=== PATIENT | female | born 1930 | race Caucasian/White ===

== ENCOUNTER 2017-06-24 13:53 | Inpatient (IN) | payer MEDICARE, OTHER ==
[~2017-06-24] VITALS: Ht 160 cm; Wt 39.0 kg
[~2017-06-24 13:53] MED LIST: THYROID
[2017-06-24 14:00] VITALS: BP 122/60
[2017-06-24] MEDS ORDERED: TRAM50TA2 PO (15:39)
[2017-06-24] MEDS ORDERED: LEVO500T2 PO (15:44)
[2017-06-24] MEDS ORDERED: RIVA10TA PO (15:44)
[2017-06-24] MEDS ORDERED: THYR90TA PO (15:44)
[2017-06-24] MEDS ORDERED: BISACODYL 5 MG TABLET.DR PO ONE (19:45)
[2017-06-24 20:15] VITALS: BP 119/75
[2017-06-24] MEDS ORDERED: ALPRAZOLAM 0.5 MG TABLET PO PRN (20:15)
[2017-06-24] MEDS ORDERED: ALPRAZOLAM 0.5 MG TABLET ONE (21:11)
--- NOTE | 2017-06-25 05:54 | NUR ---
admitted for a right hip fracture which she had surgery on the right hip on jun. right hip incision ZINC MINER BLASTING no drainage noted, dressing applied for. incontinent of urine and BM x2. Kept clean and dry. needs attended. denies any pain nor anydiscomfort. Ua C&S ordered by Dr Humphrey but unable to get specimen, patient is incontinent. Got an ok to staright cath patient, but unable to get specimen either. Will endorse to the day shift.
[2017-06-25] MEDS: THYROID 60 MG TABLET PO SCH (06:26)
[2017-06-25 06:49] LABS: BASOPHILS # (AUTO) 0.1 K/uL (0.0-8.0); BASOPHILS % (AUTO) 0.5 % (0.0-2.0); EOSINOPHILS # (AUTO) 0.2 K/uL (0.0-0.7); EOSINOPHILS % (AUTO) 1.7 % (0.0-7.0); HEMATOCRIT 38.8 % (37-47); HEMOGLOBIN 12.5 G/DL (12.0-16.0); LYMPHOCYTES # (AUTO) 1.3 K/UL (0.8-4.8); LYMPHOCYTES % (AUTO) 10.2 % (20.5-51.5); MEAN CORPUSCULAR HEMOGLOBIN 26.1 UUG (27.0-31.0); MEAN CORPUSCULAR HGB CONC 32 g/dL (32.0-37.0); MEAN CORPUSCULAR VOLUME 80.9 FL (81.0-99.0); MONOCYTES # (AUTO) 0.5 K/UL (0.1-1.30); MONOCYTES % (AUTO) 4.1 % (0.0-11.0); NEUTROPHILS # (AUTO) 10.9 K/UL (1.8-8.9); NEUTROPHILS % (AUTO) 83.5 % (38.5-71.5); PLATELET COUNT (AUTO) 423 K/UL (150-450)
[2017-06-25 07:04] LABS: IRON, SERUM 36 ug/dL (50-175)
[2017-06-25 07:13] VITALS: BP 89/51
[2017-06-25 07:36] LABS: ALANINE AMINOTRANSFERASE 32 U/L (14-59); ALKALINE PHOSPHATASE 94 U/L (50-136); ASPARTATE AMINOTRANSFERASE 25 U/L (15-37); BILIRUBIN,TOTAL 0.3 mg/dL (0.2-1.0); CARBON DIOXIDE 24 mmol/L (21-32); CHLORIDE 108 mmol/L (98-107); CREATININE 0.6 mg/dL (0.6-1.3); GLUCOSE 131 mg/dL (74-106); PHOSPHOROUS 3.4 mg/dL (2.5-4.9); POTASSIUM 4.3 mmol/L (3.5-5.1); TOTAL PROTEIN, SERUM 6.3 g/dL (6.4-8.2); UREA NITROGEN, BLOOD 15 mg/dL (7-18)
[2017-06-25 08:56] LABS: THYROID STIMULATING HORMONE 8.892 mIU/mL (0.358-3.740)
[2017-06-25] MEDS ORDERED: SENNOSIDES/DOCUSATE SODIUM TABLET PO SCH (09:00)
[2017-06-25] MEDS ORDERED: LEVOFLOXACIN 250 MG TABLET PO SCH (09:00)
[2017-06-25] MEDS ORDERED: LEVOFLOXACIN 500 MG TABLET PO SCH (09:00)
[2017-06-25] MEDS ORDERED: RIVAROXABAN 10 MG TABLET PO SCH (09:00)
--- NOTE | 2017-06-25 10:00 | NUR ---
rapid response called because pt started to have unstable vital signs. pt had heart rate of 184 bp of 89/51. pt 02 sat started to decline. rapid response team arrived. pt put on 2L oxygen. md notified. md put new orders in. chest xray done and ekg done. pt trasnferred to ER. family notified. states that pt has had recurrent episodes of tachycardia and panic attacks. report given to ER nurse.
[2017-06-27] MEDS ORDERED: DOCU100C36 PO (17:20)
[2017-06-27] MEDS ORDERED: DILT240C64 PO (17:20)
[2017-06-27] MEDS ORDERED: LACT1CAP57 PO (17:20)
[2017-06-27] MEDS ORDERED: MERO1VIA IV (17:20)
[2017-06-27] MEDS ORDERED: RIVA15TA PO (17:20)
[2017-06-27] MEDS ORDERED: PANT40TA2 PO (17:20)
[2017-06-27] MEDS ORDERED: ACET325T53 PO (17:20)
[2017-06-27] MEDS ORDERED: AZIT250T6 PO (17:20)
[2017-06-27] MEDS ORDERED: MAGN400O6 PO (17:20)
--- NOTE | 2017-06-27 18:48 | NUR ---
report received from Kourtney BELL from [facility], patient arrived at 1830 via hospital bed and transporters, patient on room air, left wrist IV 22 g hep lock, redness noted on labia region, right sided surgical sight is clean and dry, no complaints of pain, or signs of distress, patient confusion noted, MD Humphrey made aware, 126/58, 18, 98% on room air, 90 pulse, 98.5 oral temp, MD Young notified of arrival, abduction pillow in place.
--- NOTE | 2017-06-27 19:30 | NUR ---
Received patient laying in bed. Caregiver, Waqas at bedside. Patient alert and verbally responsive. Able to make needs known. Denies any pain and discomfort at this time. No acute distress. No SOB. Kept clean and dry. Abductor pillow in place at this time. All needs attended to promptly. Call light within reach. Will continue to monitor.
[2017-06-27 20:53] VITALS: BP 119/55
[2017-06-27] MEDS ORDERED: MAGNESIUM HYDROXIDE 30 ML LIQUID UDC PO PRN (21:30)
[2017-06-27] MEDS: AZITHROMYCIN 250 MG TABLET PO SCH (21:40)
[2017-06-27] MEDS ORDERED: AZITHROMYCIN 250 MG TABLET ONE (21:54)
--- NOTE | 2017-06-28 06:00 | NUR ---
Patient slept comfortably throughout the night. No c/o pain and discomfort. No acute distress. No SOB. IV site on left arm removed due bleeding and non-patency of the IV. Pressure applied to site. Tolerated well. Diaper changed. Perineal care provided. Surgical site kept clean and dry. All needs attended to promptly. Call light within reach. Will continue to monitor.
[2017-06-28] MEDS: PANTOPRAZOLE SODIUM 40 MG TABLET.DR PO SCH (06:48)
[2017-06-28] MEDS ORDERED: PANTOPRAZOLE SODIUM 40 MG TABLET.DR PO ONE (07:01)
--- NOTE | 2017-06-28 07:35 | NUR ---
PATIENT NOTED SITTING ON SIDE OF THE BED WITH OT, NO SIGNS OF DISTRESS, NO COMPLAINTS OF PAIN NOTED, STATES SHE WILL ALLOW ME TO PLACE AN IV, CALL LIGHT IN REACH, BED LOCKED AND IN LOWEST POSITION
[2017-06-28 08:00] VITALS: BP 112/68
[2017-06-28] MEDS ORDERED: MEROPENEM 1 G VIAL IV SCH (09:00)
[2017-06-28] MEDS: DILTIAZEM HCL CD 240 MG CAP.SR.24H PO SCH (09:40)
[2017-06-28] MEDS: LACTOBACILLUS RHAMNOSUS GG 1 EACH CAPSULE PO SCH ×2 (09:40→20:58)
[2017-06-28] MEDS: MEROPENEM 1 G in IV NORMAL SALINE 100 ML IV SCH ×2 (09:41→21:05)
[2017-06-28] MEDS: TRAMADOL HCL 50 MG TABLET PO PRN (10:28)
[2017-06-28] MEDS: RIVAROXABAN 15 MG TABLET PO SCH (17:16)
--- NOTE | 2017-06-28 19:30 | NUR ---
Received patient sitting up in bed. at bedside. Alert and verbally responsive. Able to make needs known. IV site in left forearm. Patent and intact. No s/s of bleeding and infiltration. No c/o pain and discomfort. No acute distress. No SOB. Kept clean and dry. All needs attended to promptly. Call light within reach. Will continue to monitor.
[2017-06-28] MEDS: ACETAMINOPHEN 325 MG TABLET PO PRN (20:56)
[2017-06-28] MEDS: AZITHROMYCIN 250 MG TABLET PO SCH (20:58)
[2017-06-28] MEDS: DOCUSATE SODIUM 100 MG CAPSULE PO SCH (20:58)
[2017-06-28 21:05] VITALS: BP 125/54
[2017-06-29] MEDS: THYROID 60 MG TABLET PO SCH (06:27)
--- NOTE | 2017-06-29 06:34 | NUR ---
Patient slept comfortably throughout the night. No c/o pain and discomfort. No acute distress. No SOB. Kept clean and dry. IV site patent and intact. No s/s of bleeding. No infiltration noted. Surgical site kept clean and dry. All needs attended to promptly. Call light within reach. Will continue to monitor.
[2017-06-29 07:00] VITALS: BP 116/58
--- NOTE | 2017-06-29 07:33 | NUR ---
PATIENT AWAKE IN BED, NO COMPLAINTS OF PAIN, NO SIGNS OF DISTRESS NOTED, SBAR RECEIVED, CALL LIGHT IN REACH, BED LOCKED AND IN LOWEST POSITION
[2017-06-29] MEDS: LACTOBACILLUS RHAMNOSUS GG 1 EACH CAPSULE PO SCH ×2 (08:45→21:51)
[2017-06-29] MEDS: DILTIAZEM HCL CD 240 MG CAP.SR.24H PO SCH (08:49)
[2017-06-29] MEDS: TRAMADOL HCL 50 MG TABLET PO PRN ×2 (08:49→21:15)
[2017-06-29] MEDS: MEROPENEM 1 G in IV NORMAL SALINE 100 ML IV SCH ×2 (08:50→21:16)
[2017-06-29] MEDS: RIVAROXABAN 15 MG TABLET PO SCH (17:08)
[2017-06-29] MEDS ORDERED: LIDOCAINE 2% (UROJET) 10 ML JELLY MM ONE (19:30)
[2017-06-29] MEDS ORDERED: TRIAMCINOLONE ACETONIDE 40 MG/1 ML VIAL IJ ONE (19:30)
[2017-06-29] MEDS ORDERED: LIDOCAINE HCL 1% 20 ML VIAL IJ PRN (19:30)
--- NOTE | 2017-06-29 19:30 | NUR ---
Received patient in bed. Caregiver Waqas at bedside. Patient is alert and verbally responsive. Able to make needs known. Denies any pain and discomfort at this time. No acute distress. No SOB. Kept clean and dry. IV site on left forearm patient and intact. No s/s of bleeding. No s/s of infiltration. Dr. Young in facility to do B/L knee injections, but per MD patient refused and verbalized she wanted to do it when the daughter is here so she can hold her hand. All needs attended to promptly. Call light within reach. Will continue to monitor. Addendum: 06/29/17 at 2142 by MACK DORSEY RN Abductor pillow also in place at this time.
[2017-06-29] MEDS: DOCUSATE SODIUM 100 MG CAPSULE PO SCH (21:00)
[2017-06-29] MEDS: AZITHROMYCIN 250 MG TABLET PO SCH (21:15)
[2017-06-29 22:03] VITALS: BP 113/57
[2017-06-30] MEDS: THYROID 60 MG TABLET PO SCH (06:40)
[2017-06-30] MEDS: PANTOPRAZOLE SODIUM 40 MG TABLET.DR PO SCH (06:43)
--- NOTE | 2017-06-30 07:50 | NUR ---
Pt SBAR report received near bedside. Pt. sitting up in bed, awake, alert, oriented x3 with no c/o pain or discomfort at this time. All safety and comfort measures in place, call light and personal items within reach. Bed in locked and low position. Will continue to monitor.
[2017-06-30 08:44] VITALS: BP 115/53
[2017-06-30] MEDS: LACTOBACILLUS RHAMNOSUS GG 1 EACH CAPSULE PO SCH ×2 (09:19→21:26)
[2017-06-30] MEDS: DILTIAZEM HCL CD 240 MG CAP.SR.24H PO SCH (09:24)
[2017-06-30] MEDS: MEROPENEM 1 G in IV NORMAL SALINE 100 ML IV SCH ×2 (09:30→21:26)
[2017-06-30] MEDS: TRAMADOL HCL 50 MG TABLET PO PRN (12:54)
--- NOTE | 2017-06-30 13:02 | NUR ---
Pt reports Right knee pain, level 7/10 while sitting in bed. Pt.'s /caregiver Waqas is at the bedside. Tramadol one 50mg tab administered per PRN pain orders. Will reassess and continue to monitor pain management throughout shift.
[2017-06-30] MEDS: RIVAROXABAN 15 MG TABLET PO SCH (17:40)
--- NOTE | 2017-06-30 18:33 | NUR ---
Pt comfortably sitting up in semi-fowlers position with family visiting at bedside. Bed in lowest level, locked, and 2 side rails up. Pt compliant with all routine medication administration during this shift. Pt reports having no pain since medication this afternoon. All comfort and safety measures in place at this time. Will continue to monitor and endorse field representative.
--- NOTE | 2017-06-30 19:30 | NUR ---
PT ALERT AND ORIENTED IN BED, BUT FORGETFUL AT TIMES. NO DISTRESS NOTED. IV INTACT AND PATENT. ABDUCTOR PILLOW IN PLACE. NO PAIN NOTED AT THIS TIME. CLEAN AND DRY. TURNED AND REPOSITIONED. SAFETY MAINTAINED. CALL LIGHT WITHIN REACH. WILL CONTINUE TO MONITOR. FAMILY AT BEDSIDE.
[2017-06-30 20:37] VITALS: BP 108/66
[2017-06-30] MEDS: DOCUSATE SODIUM 100 MG CAPSULE PO SCH (21:26)
[2017-06-30] MEDS: Z GUARD REMEDY PASTE 57 GM TUBE TOP PRN (21:40)
[2017-06-30] MEDS: ALPRAZOLAM 0.5 MG TABLET PO PRN (21:40)
[2017-07-01] MEDS: THYROID 60 MG TABLET PO SCH (06:14)
[2017-07-01] MEDS: PANTOPRAZOLE SODIUM 40 MG TABLET.DR PO SCH (06:14)
--- NOTE | 2017-07-01 06:49 | NUR ---
PT RESTING IN BED. NO DISTRESS NOTED. IV INTACT AND PATENT. SLEPT WELL THROUGHOUT THE NIGHT. CLEAN AND DRY. TURNED AND REPOSITIONED. DRESSING CHANGED DUE TO SOILING. Z GUARD APPLIED. SAFETY MAINTAINED. CALL LIGHT WITHIN REACH.
[2017-07-01] MEDS: LACTOBACILLUS RHAMNOSUS GG 1 EACH CAPSULE PO SCH ×2 (09:48→20:31)
[2017-07-01] MEDS: ACETAMINOPHEN 325 MG TABLET PO PRN (09:48)
[2017-07-01] MEDS: DILTIAZEM HCL CD 240 MG CAP.SR.24H PO SCH (09:50)
[2017-07-01] MEDS: MEROPENEM 1 G in IV NORMAL SALINE 100 ML IV SCH ×2 (09:51→20:31)
[2017-07-01] MEDS: RIVAROXABAN 15 MG TABLET PO SCH (17:41)
[2017-07-01] MEDS: TRAMADOL HCL 50 MG TABLET PO PRN (18:43)
--- NOTE | 2017-07-01 19:25 | NUR ---
Received pt in bed, awake, alert and watching TV. Caregiver at bedside. No acute distress noted. Denies pain or discomfort at this time. Abductor pillow in place. All safety measures and fall precautions maintained. Call light within reach. Will continue to monitor.
[2017-07-01] MEDS: DOCUSATE SODIUM 100 MG CAPSULE PO SCH (20:31)
[2017-07-01 22:00] VITALS: BP 133/55
--- NOTE | 2017-07-02 05:57 | NUR ---
Pt slept comfortably throughout shift. Denies pain or discomfort. No acute distress noted. Kept clean and dry. Tolerated all medications well. Abductor pillow in place. All safety measures and fall precautions maintained. Call light within reach. Will continue to monitor.
[2017-07-02] MEDS: THYROID 60 MG TABLET PO SCH (06:24)
[2017-07-02] MEDS: PANTOPRAZOLE SODIUM 40 MG TABLET.DR PO SCH (06:24)
[2017-07-02 07:09] VITALS: BP 116/60
[2017-07-02 07:27] LABS: BASOPHILS # (AUTO) 0.1 K/uL (0.0-8.0); BASOPHILS % (AUTO) 0.8 % (0.0-2.0); EOSINOPHILS # (AUTO) 0.2 K/uL (0.0-0.7); EOSINOPHILS % (AUTO) 2.9 % (0.0-7.0); HEMATOCRIT 34.4 % (37-47); HEMOGLOBIN 11.1 G/DL (12.0-16.0); LYMPHOCYTES # (AUTO) 0.7 K/UL (0.8-4.8); LYMPHOCYTES % (AUTO) 10.2 % (20.5-51.5); MEAN CORPUSCULAR HEMOGLOBIN 25.9 UUG (27.0-31.0); MEAN CORPUSCULAR HGB CONC 32 g/dL (32.0-37.0); MONOCYTES # (AUTO) 0.4 K/UL (0.1-1.30); MONOCYTES % (AUTO) 6.2 % (0.0-11.0); NEUTROPHILS # (AUTO) 5.6 K/UL (1.8-8.9); NEUTROPHILS % (AUTO) 79.9 % (38.5-71.5); PLATELET COUNT (AUTO) 381 K/UL (150-450)
[2017-07-02 07:39] LABS: ALANINE AMINOTRANSFERASE 24 U/L (14-59); ALKALINE PHOSPHATASE 136 U/L (50-136); ASPARTATE AMINOTRANSFERASE 15 U/L (15-37); BILIRUBIN,TOTAL 0.3 mg/dL (0.2-1.0); CARBON DIOXIDE 27 mmol/L (21-32); CHLORIDE 107 mmol/L (98-107); CREATININE 0.6 mg/dL (0.6-1.3); GLUCOSE 96 mg/dL (74-106); PHOSPHOROUS 2.8 mg/dL (2.5-4.9); POTASSIUM 4.1 mmol/L (3.5-5.1); TOTAL PROTEIN, SERUM 6.2 g/dL (6.4-8.2); UREA NITROGEN, BLOOD 14 mg/dL (7-18)
--- NOTE | 2017-07-02 07:45 | NUR ---
SBAR RECEIVED, PATIENT NOTED LYING IN BED SLEEPING, NO SIGNS OF DISTRESS, NO COMPLAINTS OF PAIN, CALL LIGHT IN REACH, BED LOCKED AND IN LOWEST POSITION, ALL NEEDS ARE MET AT THIS TIME
[2017-07-02] MEDS: LACTOBACILLUS RHAMNOSUS GG 1 EACH CAPSULE PO SCH ×2 (09:08→20:17)
[2017-07-02] MEDS: TRAMADOL HCL 50 MG TABLET PO PRN ×2 (09:09→20:18)
[2017-07-02] MEDS: DILTIAZEM HCL CD 240 MG CAP.SR.24H PO SCH (09:09)
[2017-07-02] MEDS: MEROPENEM 1 G in IV NORMAL SALINE 100 ML IV SCH ×2 (09:10→20:18)
[2017-07-02] MEDS: RIVAROXABAN 15 MG TABLET PO SCH (17:25)
--- NOTE | 2017-07-02 18:54 | NUR ---
patient lying in bed, family member at bed side, no complaints of pain, no signs of distress, call light in reach, bed locked and in lowest position
[2017-07-02] MEDS ORDERED: BISACODYL 5 MG TABLET.DR PO ONE (19:45)
[2017-07-02] MEDS: DOCUSATE SODIUM 100 MG CAPSULE PO SCH (20:17)
[2017-07-02] MEDS: ALPRAZOLAM 0.5 MG TABLET PO PRN (20:44)
--- NOTE | 2017-07-02 21:00 | NUR ---
RECEIBED PT'S A/A/O X2-3 DENIED OF PAIN OR ANY DISCOMFORT.ASSISTED PT FOR PM,SKIN CARE ON BED.PT HAD A LITTLE HARD OF HEARING,WITH HER AT THE BEDSIDE.UPDATED THE PLAN OF CARE TO THEM;THEY VERBALIZED UNDERSTANDING AND COOPERATIVE NOTED.REPOSITION AND KEPT COMFORT.DUE TIME FOR ABX:MERREM IVPB(SEE RECORD:EDUCATED;SO FAR:PT TOLERATED WELL.DRY COUGH SOMETIMES ON/OFF BUT NO SOB NOTED.CONTINUED MONITORING TO PT.BED ALARM'S ON.
[2017-07-02 21:44] VITALS: BP 113/55
--- NOTE | 2017-07-03 06:30 | NUR ---
PT SLEPT WELL DURING OF THE NIGHT.ASSISTED FOR AM,SKIN CARE ON BED AT THIS TIME;WITH MODERATE ASSISTANCE.NO DISTRESS NOTED IN THE SHIFT.PT DENIED OF PAIN AT THIS TIME.PAIN'S CONTROLLED NOTED.
[2017-07-03] MEDS: THYROID 60 MG TABLET PO SCH (06:39)
[2017-07-03] MEDS: PANTOPRAZOLE SODIUM 40 MG TABLET.DR PO SCH (06:39)
[2017-07-03] MEDS: Z GUARD REMEDY PASTE 57 GM TUBE TOP PRN (06:42)
[2017-07-03 08:51] VITALS: BP 112/53
[2017-07-03] MEDS: LACTOBACILLUS RHAMNOSUS GG 1 EACH CAPSULE PO SCH ×2 (09:00→20:24)
[2017-07-03] MEDS: DILTIAZEM HCL CD 240 MG CAP.SR.24H PO SCH (10:04)
[2017-07-03] MEDS: ACETAMINOPHEN 325 MG TABLET PO PRN (10:52)
[2017-07-03] MEDS: TRAMADOL HCL 50 MG TABLET PO PRN (10:53)
[2017-07-03] MEDS: RIVAROXABAN 15 MG TABLET PO SCH (17:58)
--- NOTE | 2017-07-03 18:11 | NUR ---
DAILY NOTE H/L RIGHT FOREARM REMOVED INTACT #22G. MUSHTAQ WELL
[2017-07-03 20:00] VITALS: BP 119/59
--- NOTE | 2017-07-03 20:00 | NUR ---
Received patient laying comfortably in bed, awake and not in respiratory distress, with at bedside. All due meds given, swallowed each pill with water tolerated well. Placed call light in reach. Will continue to monitor.
[2017-07-03] MEDS: DOCUSATE SODIUM 100 MG CAPSULE PO SCH (20:24)
[2017-07-04] MEDS: PANTOPRAZOLE SODIUM 40 MG TABLET.DR PO SCH (06:27)
[2017-07-04] MEDS: THYROID 60 MG TABLET PO SCH (06:28)
--- NOTE | 2017-07-04 07:15 | NUR ---
Patient slept comfortably but there were episodes of patient moaning in the middle of her sleep because she said she had a bad dream. She was asking where her is and also stated that she wanted to be with her father. Explained and reoriented the patient that she is in the hospital. Patient able to have BM twice. All due meds given. Call light in reach. Will endorse patient to AM shift nurse.
--- NOTE | 2017-07-04 07:40 | NUR ---
Received patient anxious and with chest discomfort. V/S taken, Dr. Aceves pageromina and informed glazier supervisor.
--- NOTE | 2017-07-04 07:45 | NUR ---
CT-179. BP- 102/79. Informed Hyd, Manager Corporate Strategy. Seen by gas distribution supervisor. PRN Xanax and Tramadol give. Dr. Victor Manuel bermudez
[2017-07-04] MEDS: ALPRAZOLAM 0.5 MG TABLET PO PRN (07:56)
[2017-07-04] MEDS: TRAMADOL HCL 50 MG TABLET PO PRN (07:56)
--- NOTE | 2017-07-04 08:04 | NUR ---
Patient more calm. BP 122/55. AK-102 SpO2 92%. Will continue to monitor
[2017-07-04] MEDS: LACTOBACILLUS RHAMNOSUS GG 1 EACH CAPSULE PO SCH ×2 (08:27→21:19)
[2017-07-04] MEDS: DILTIAZEM HCL CD 240 MG CAP.SR.24H PO SCH (08:27)
[2017-07-04 08:54] VITALS: BP 103/71
[2017-07-04 09:00] VITALS: BP 112/55
[2017-07-04 10:00] VITALS: BP 104/76
--- NOTE | 2017-07-04 11:19 | NUR ---
Dr. Aceves ordered for cardio consult. With at bedside. FL at 103. No complaints of SOB or chest discomfort. No in apparent distress
--- NOTE | 2017-07-04 14:00 | NUR ---
INTERDISCIPLINARY REHAB SUMMARY
[2017-07-04] MEDS: ACETAMINOPHEN 325 MG TABLET PO PRN (14:10)
--- NOTE | 2017-07-04 14:30 | NUR ---
PAIN OVER ABDOMEN RATED 6/10. PRN TYLENOL GIVEN
--- NOTE | 2017-07-04 15:19 | NUR ---
See and examined by Dr. Aceves. Metoprolol 12.5 mg Q12 ordered.
[2017-07-04 15:20] VITALS: BP 130/53
[2017-07-04] MEDS: RIVAROXABAN 15 MG TABLET PO SCH (17:51)
--- NOTE | 2017-07-04 19:40 | NUR ---
Dr. Osborne in facility and examined patient with new orders for ECG. New orders noted and carried out. Per MD, to put results in chart when done and he will take a look at results in AM.
[2017-07-04 20:00] VITALS: BP 117/59
--- NOTE | 2017-07-04 20:00 | NUR ---
Patient remains in no acute distress. HR is 100. No c/o pain and discomfort. Caregiver Waqas at bedside. All needs attended to promptly. Call light within reach.Will continue to monitor.
[2017-07-04] MEDS: DOCUSATE SODIUM 100 MG CAPSULE PO SCH (21:17)
[2017-07-04] MEDS: METOPROLOL TARTRATE 25 MG TABLET PO SCH (21:19)
[2017-07-05] MEDS: ALPRAZOLAM 0.5 MG TABLET PO PRN (00:01)
[2017-07-05] MEDS: THYROID 60 MG TABLET PO SCH (06:07)
[2017-07-05] MEDS: PANTOPRAZOLE SODIUM 40 MG TABLET.DR PO SCH (06:07)
--- NOTE | 2017-07-05 06:32 | NUR ---
Patient slept comfortably throughout the night. No c/o pain and discomfort. No acute distress. No SOB. Diaper changed throughout the night. Kept clean and dry. All needs attended to promptly. Call light within reach. Will continue to monitor.
[2017-07-05 08:51] VITALS: BP 109/54
[2017-07-05] MEDS: METOPROLOL TARTRATE 25 MG TABLET PO SCH ×2 (09:00→20:22)
[2017-07-05] MEDS: LACTOBACILLUS RHAMNOSUS GG 1 EACH CAPSULE PO SCH ×2 (09:46→20:23)
[2017-07-05] MEDS: DILTIAZEM HCL CD 240 MG CAP.SR.24H PO SCH (09:46)
--- NOTE | 2017-07-05 09:47 | NUR ---
DAILY NOTE LOPRESSOR HELD CARDIZEM GIVEN B/P 109/54.
[2017-07-05] MEDS: TRAMADOL HCL 50 MG TABLET PO PRN (13:29)
[2017-07-05] MEDS: RIVAROXABAN 15 MG TABLET PO SCH (18:19)
--- NOTE | 2017-07-05 19:25 | NUR ---
Received patient laying in bed. Family at bedside. AAO x3. Abduction pillow noted. No acute distress noted. No c/o pain or discomfort at this time. Safety measures maintained. Call light within reach. Will continue to monitor.
[2017-07-05 19:45] VITALS: BP 133/59
[2017-07-05] MEDS: DOCUSATE SODIUM 100 MG CAPSULE PO SCH (20:23)
[2017-07-05] MEDS: ACETAMINOPHEN 325 MG TABLET PO PRN (20:24)
[2017-07-06] MEDS: LACTOBACILLUS RHAMNOSUS GG 1 EACH CAPSULE PO SCH ×2 (09:00→20:19)
[2017-07-06] MEDS: METOPROLOL TARTRATE 25 MG TABLET PO SCH ×2 (09:00→20:17)
[2017-07-06] MEDS: DILTIAZEM HCL CD 240 MG CAP.SR.24H PO SCH (09:00)
[2017-07-06] MEDS: CAPSAICIN 0.025% CREAM 56.6 GM TUBE TOP SCH ×3 (13:15→20:32)
[2017-07-06] MEDS: ACETAMINOPHEN 325 MG TABLET PO PRN (16:44)
[2017-07-06] MEDS: RIVAROXABAN 15 MG TABLET PO SCH (17:51)
--- NOTE | 2017-07-06 19:30 | NUR ---
Received patient laying in bed, resting comfortably. Family at bedside. Abduction pillow noted. Tolerating well. AAO x3. No acute distress noted. No SOB. No c/o pain or discomfort at this time. Safety measures maintained. Call light within reach. Will continue to monitor.
[2017-07-06 20:00] VITALS: BP 122/59
[2017-07-06] MEDS: DOCUSATE SODIUM 100 MG CAPSULE PO SCH (20:19)
--- NOTE | 2017-07-07 05:37 | NUR ---
Patient slept intermittently at night with episodes of confusion. Patient was looking for and calling for her daughter and . Reinforced orientation. No acute distress noted. No c/o pain or discomfort. All needs attended throughout the night. Safety measures maintained. Call light within reach. Continue to monitor.
[2017-07-07] MEDS: PANTOPRAZOLE SODIUM 40 MG TABLET.DR PO SCH (06:13)
[2017-07-07] MEDS: THYROID 60 MG TABLET PO SCH (06:15)
[2017-07-07 08:00] VITALS: BP 142/59
[2017-07-07] MEDS: LACTOBACILLUS RHAMNOSUS GG 1 EACH CAPSULE PO SCH ×2 (08:05→20:59)
[2017-07-07] MEDS: METOPROLOL TARTRATE 25 MG TABLET PO SCH ×2 (08:05→20:59)
[2017-07-07] MEDS: ALPRAZOLAM 0.5 MG TABLET PO PRN (08:05)
[2017-07-07] MEDS: CAPSAICIN 0.025% CREAM 56.6 GM TUBE TOP SCH ×4 (08:05→20:58)
[2017-07-07] MEDS: DILTIAZEM HCL CD 240 MG CAP.SR.24H PO SCH (08:05)
--- NOTE | 2017-07-07 10:45 | NUR ---
pt seen on rounding. vitals stable. pt continues to be agitated and confused and asking for her . pt shows signs of panic. pt given xanax and am meds. pt took meds. pt continues to ask to remove the adductor pillow. pt taught about risks and benefits. pt continues to need reorientation. pt calmed down when arrived. will continue to monitor.
[2017-07-07] MEDS ORDERED: LIDOCAINE HCL 1% 20 ML VIAL IJ PRN (16:15)
[2017-07-07] MEDS ORDERED: TRIAMCINOLONE ACETONIDE 40 MG/1 ML VIAL IM ONE (16:15)
[2017-07-07] MEDS: RIVAROXABAN 15 MG TABLET PO SCH (17:03)
--- NOTE | 2017-07-07 17:44 | NUR ---
pt received a kenalog shot from dr rae. pt was also put on xylocaine
--- NOTE | 2017-07-07 19:20 | NUR ---
pt stable throughout the day. pt had an episode of anxiety and was resolved when family member came. pt continues to be assisted on when needed. pt continues to be confused all day. pt given knee shot by dr rae for inflammation of the knee. no infection noted. will endorse to welding setter nurse.
--- NOTE | 2017-07-07 19:30 | NUR ---
PT RESTING IN BED. NO DISTRESS NOTED. COMPLIANT WITH NURSING CARE. TURNED AND REPOSITIONED. CLEAN AND DRY. Z GUARD APPLIED. SAFETY MAINTAINED. CALL LIGHT WITHIN REACH. AT BEDSIDE.
[2017-07-07 20:00] VITALS: BP 125/60
[2017-07-07] MEDS: DOCUSATE SODIUM 100 MG CAPSULE PO SCH (20:58)
[2017-07-08] MEDS: ALPRAZOLAM 0.5 MG TABLET PO PRN (01:43)
[2017-07-08] MEDS: Z GUARD REMEDY PASTE 57 GM TUBE TOP PRN (02:53)
[2017-07-08 02:55] VITALS: BP 109/77
[2017-07-08] MEDS: TRAMADOL HCL 50 MG TABLET PO PRN ×2 (03:02→18:06)
[2017-07-08] MEDS: PANTOPRAZOLE SODIUM 40 MG TABLET.DR PO SCH (06:08)
[2017-07-08] MEDS: THYROID 60 MG TABLET PO SCH (06:08)
--- NOTE | 2017-07-08 06:50 | NUR ---
PT RESTING IN BED. NO DISTRESS NOTED. HAD MOMENTS OF CONFUSION, SHOUTING AND YELLING FOR AND MOTHER. XANAX GIVEN FOR AGITATION. ULTRAM GIVEN FOR PAIN. SLEPT WELL AFTER. CLEAN AND DRY. TURNED AND REPOSITIONED Q 2. Z GUARD APPLIED MULTIPLE TIMES THROUGHOUT THE NIGHT. SAFETY MAINTAINED. CALL LIGHT WITHIN REACH.
[2017-07-08 08:00] VITALS: BP 134/50
[2017-07-08] MEDS: LACTOBACILLUS RHAMNOSUS GG 1 EACH CAPSULE PO SCH ×2 (09:04→20:27)
[2017-07-08] MEDS: METOPROLOL TARTRATE 25 MG TABLET PO SCH ×2 (09:04→20:29)
[2017-07-08] MEDS: DILTIAZEM HCL CD 240 MG CAP.SR.24H PO SCH (09:04)
[2017-07-08] MEDS: CAPSAICIN 0.025% CREAM 56.6 GM TUBE TOP SCH ×4 (09:27→21:05)
--- NOTE | 2017-07-08 10:10 | NUR ---
pt seen on rounding. pt was asleep and awaken. pt more alert and oriented compared to previous mornings. pt blood pressure elevated and was given bp meds along with am meds. pt took meds one by one. pt also ate breakfast. pt was at bedside. no sob or anxiety noted. will continue to assess.
[2017-07-08] MEDS: RIVAROXABAN 15 MG TABLET PO SCH (17:25)
--- NOTE | 2017-07-08 18:12 | NUR ---
pt stable throughout the day.pt participated in therapy and showed some fatigue. pt ate throughout the day. sitter arrived by bedside,. pt given tramadol for pain as requested. wound site cleaned and changed dressing. no signs of infection. pt continues to be confused at times. redness on perineal area improved. applied zguard. no new injuries noted. pt took meds one by one. will endorse to nightman nurse.
--- NOTE | 2017-07-08 19:30 | NUR ---
RECEIVED PT FROM DAY SHIFT NURSE. SHIFT REPORT AT BEDSIDE. CAREGIVER SITTING AT BEDSIDE. PT CONFUSED. NO SIGNS OF PAIN, SOB, OR ACUTE DISTRESS. PERTINENT ASSESSMENT DONE. SAFETY MEASURES IMPLEMENTED. CALL LIGHT PLACED WITHIN REACH OF PT. WILL CONTINUE TO MONITOR PT THROUGH OUT SHIFT.
[2017-07-08] MEDS: DOCUSATE SODIUM 100 MG CAPSULE PO SCH (20:27)
[2017-07-08 20:35] VITALS: BP_SYST 104; BP_SYST 117; BP_DIAS 58; BP_DIAS 69
[2017-07-09] MEDS: ALPRAZOLAM 0.5 MG TABLET PO PRN ×2 (00:51→18:00)
[2017-07-09] MEDS: PANTOPRAZOLE SODIUM 40 MG TABLET.DR PO SCH (06:11)
[2017-07-09] MEDS: THYROID 60 MG TABLET PO SCH (06:11)
--- NOTE | 2017-07-09 06:59 | NUR ---
PT SLEPT COMFORTABLY THROUGH OUT THE SHIFT. NO SIGNS OF PAIN, SOB, OR ACUTE DISTRESS. ALL NEEDS ATTENDED TO. MEDICATIONS ADMINISTERED ORDERED. CALL LIGHT WITHIN REACH OF PT. WILL ENDORSE TO MORNING SHIFT NURSE.
[2017-07-09 07:20] VITALS: BP 132/54
--- NOTE | 2017-07-09 07:55 | NUR ---
PATIENT NOTED RESTING IN BED WITH EYES CLOSED, SBAR RECEIVED FROM NIGHT NURSE, NO FACIAL CUES OF PAIN NOTED, NO SIGNS OF DISTRESS, CALL LIGHT IN REACH, BED LOCKED AND IN LOWEST POSITION
[2017-07-09] MEDS: LACTOBACILLUS RHAMNOSUS GG 1 EACH CAPSULE PO SCH ×2 (08:10→20:33)
[2017-07-09] MEDS: TRAMADOL HCL 50 MG TABLET PO PRN ×2 (08:11→21:21)
[2017-07-09] MEDS: DILTIAZEM HCL CD 240 MG CAP.SR.24H PO SCH ×2 (08:14→12:51)
[2017-07-09] MEDS: METOPROLOL TARTRATE 25 MG TABLET PO SCH ×2 (08:15→21:05)
[2017-07-09] MEDS: CAPSAICIN 0.025% CREAM 56.6 GM TUBE TOP SCH ×4 (09:09→20:34)
[2017-07-09] MEDS: RIVAROXABAN 15 MG TABLET PO SCH (17:55)
[2017-07-09] MEDS: ACETAMINOPHEN 325 MG TABLET PO PRN (18:28)
--- NOTE | 2017-07-09 19:30 | NUR ---
Received patient laying comfortably in bed, resting. Family and caregiver at bedside. HR 110 at this time. Will continue to closely monitor. On 2L/min Oxygen via NC. O2 sat 98%. Abductor pillow noted. No acute distress noted at this time. No c/o pain or discomfort. Safety measures maintained. Call light within reach. Will continue to monitor.
--- NOTE | 2017-07-09 19:37 | NUR ---
1800..131/76, 96% on 2 liters of 02, heart rate 180, xanax and 650 mg tylenol given at this time, darrin juares notified and instructed to have patient do vagal maneuvers , 1930...heart rate noted at 110, endorsed to night custodian nurse
[2017-07-09 20:00] VITALS: BP 110/70
[2017-07-09] MEDS: DOCUSATE SODIUM 100 MG CAPSULE PO SCH (20:33)
--- NOTE | 2017-07-09 20:50 | NUR ---
Patient's HR 180. Other V/S WNL. HOB raised. Still on 2L O2 NC saturating at 98%. Administered scheduled metoprolol and gave tramadol for pain 03/26 at this time. Monitoring patient closely and continuously rechecking HR.
--- NOTE | 2017-07-09 21:00 | NUR ---
Patient's HR 114. Patient kept on looking for her and asked to call him. She calmed down after she talked to her . Will continue to closely monitor vital signs.
--- NOTE | 2017-07-09 22:00 | NUR ---
Performed wound care. Clean and changed dressing. No signs of infection. Continue to monitor.
--- NOTE | 2017-07-10 05:44 | NUR ---
Patient slept comfortably t/o the night. Monitored HR t/o the night, HR 88 consistently. No acute distress noted. On 2L O2 NC, tolerating well. Safety measures maintained. Call light within reach. Will endorse to day shift RN. Continue to monitor.
[2017-07-10] MEDS: PANTOPRAZOLE SODIUM 40 MG TABLET.DR PO SCH (06:00)
[2017-07-10] MEDS: THYROID 60 MG TABLET PO SCH (06:01)
[2017-07-10 07:22] VITALS: BP 106/61
[2017-07-10] MEDS: METOPROLOL TARTRATE 25 MG TABLET PO SCH ×2 (09:00→20:37)
[2017-07-10] MEDS: LACTOBACILLUS RHAMNOSUS GG 1 EACH CAPSULE PO SCH ×2 (09:28→20:36)
[2017-07-10] MEDS: CAPSAICIN 0.025% CREAM 56.6 GM TUBE TOP SCH ×4 (09:31→20:44)
[2017-07-10 13:00] VITALS: BP 115/62
[2017-07-10] MEDS: RIVAROXABAN 15 MG TABLET PO SCH (17:23)
[2017-07-10] MEDS: ALPRAZOLAM 0.5 MG TABLET PO PRN (17:30)
--- NOTE | 2017-07-10 19:20 | NUR ---
Received patient laying comfortably in bed. Family at bedside. No acute distress noted. No c/o pain or discomfort. Safety measures maintained. Call light within reach. Will continue to monitor.
[2017-07-10 20:00] VITALS: BP 113/51
[2017-07-10] MEDS: DOCUSATE SODIUM 100 MG CAPSULE PO SCH (20:36)
--- NOTE | 2017-07-10 22:30 | NUR ---
Performed wound care on surgical site. Clean, intact, and dry.
--- NOTE | 2017-07-11 05:17 | NUR ---
Patient slept intermittently at night. Daughter visited last night and left a note about her concerns regarding patient's discharge which is supposedly today 07/11/2017. Will endorse to day shift RN. No acute distress noted. No c/o pain or discomfort. All needs attended t/o the night. Safety measures maintained. Call light within reach. Continue to monitor.
[2017-07-11] MEDS: Z GUARD REMEDY PASTE 57 GM TUBE TOP PRN (05:58)
[2017-07-11] MEDS: PANTOPRAZOLE SODIUM 40 MG TABLET.DR PO SCH (06:00)
[2017-07-11] MEDS: THYROID 60 MG TABLET PO SCH (06:00)
[2017-07-11 07:25] LABS: BASOPHILS % (AUTO) 0.9 % (0.0-2.0); EOSINOPHILS % (AUTO) 0.2 % (0.0-7.0); HEMATOCRIT 39.3 % (37-47); HEMOGLOBIN 12.5 G/DL (12.0-16.0); LYMPHOCYTES % (AUTO) 5.9 % (20.5-51.5); MEAN CORPUSCULAR HEMOGLOBIN 25.6 UUG (27.0-31.0); MEAN CORPUSCULAR HGB CONC 32 g/dL (32.0-37.0); MEAN CORPUSCULAR VOLUME 80.4 FL (81.0-99.0); MONOCYTES % (AUTO) 3.1 % (0.0-11.0); NEUTROPHILS % (AUTO) 89.9 % (38.5-71.5); PLATELET COUNT (AUTO) 415 K/UL (150-450); WHITE BLOOD COUNT (AUTO) 16.5 K/UL (4.0-11.2)
[2017-07-11 07:26] LABS: BASOPHILS # (AUTO) 0.1 K/uL (0.0-8.0); MONOCYTES # (AUTO) 0.5 K/UL (0.1-1.30); NEUTROPHILS # (AUTO) 14.9 K/UL (1.8-8.9)
[2017-07-11 07:57] LABS: ALANINE AMINOTRANSFERASE 199 U/L (14-59); ALKALINE PHOSPHATASE 186 U/L (50-136); ASPARTATE AMINOTRANSFERASE 35 U/L (15-37); BILIRUBIN,TOTAL 0.4 mg/dL (0.2-1.0); CARBON DIOXIDE 26 mmol/L (21-32); CHLORIDE 106 mmol/L (98-107); CREATININE 0.6 mg/dL (0.6-1.3); GLUCOSE 90 mg/dL (74-106); MAGNESIUM 2.1 mg/dL (1.8-2.4); PHOSPHOROUS 3.4 mg/dL (2.5-4.9); POTASSIUM 4.2 mmol/L (3.5-5.1); TOTAL PROTEIN, SERUM 7.3 g/dL (6.4-8.2); UREA NITROGEN, BLOOD 21 mg/dL (7-18)
[2017-07-11 08:47] VITALS: BP 117/64
[2017-07-11] MEDS: LACTOBACILLUS RHAMNOSUS GG 1 EACH CAPSULE PO SCH ×2 (08:52→20:51)
[2017-07-11] MEDS: DILTIAZEM HCL CD 240 MG CAP.SR.24H PO SCH (08:53)
[2017-07-11 11:22] LABS: BAND % (MANUAL) 2 % (0-10); LYMPHOCYTES % (MANUAL) 8 % (20-40); MONOCYTES % (MANUAL) 1 % (2-10); NEUTROPHILS % (MANUAL) 89 % (42-75)
--- NOTE | 2017-07-11 14:07 | NUR ---
INTERDISCIPLINARY TEAM SUMMARY
[2017-07-11] MEDS: CAPSAICIN 0.025% CREAM 56.6 GM TUBE TOP SCH ×4 (14:29→20:51)
[2017-07-11] MEDS: METOPROLOL TARTRATE 25 MG TABLET PO SCH ×2 (14:30→20:50)
[2017-07-11] MEDS: ALPRAZOLAM 0.5 MG TABLET PO PRN (17:16)
--- NOTE | 2017-07-11 17:19 | NUR ---
Pt displays s/s of increasing anxiety, becoming easily irritated with staff asking to speak with her . Caregiver returned with dinner for Pt. PRN xanax administered as ordered. Will continue to monitor. Visitor at bedside.
--- NOTE | 2017-07-11 19:05 | NUR ---
Pt v/s have remained stable throughout this shift.Visitors remained at bedside most of the afternoon. All comfort and safety measures have been met at this time. Personal items and call light remain within reach. Assessed to have no c/o during shift. Will continue to monitor and endorse to fortune teller.
--- NOTE | 2017-07-11 19:20 | NUR ---
Received patient resting in bed, watching TV. Caregiver at bedside. AAO x3. No acute distress noted. No c/o pain or discomfort. Safety measures maintained. Call light within reach. Will continue to monitor.
[2017-07-11] MEDS: RIVAROXABAN 15 MG TABLET PO SCH (19:41)
[2017-07-11 20:00] VITALS: BP 119/52
[2017-07-11] MEDS: DOCUSATE SODIUM 100 MG CAPSULE PO SCH (20:51)
[2017-07-12] MEDS: ALPRAZOLAM 0.5 MG TABLET PO PRN ×2 (01:27→18:43)
--- NOTE | 2017-07-12 05:21 | NUR ---
Patient slept intermittently at night. Episodes of confusion and looking for her 3x. Reoriented the patient. Vital signs stable. No acute distress noted. Medications given as prescribed. All needs attended to promptly. Safety measures maintained. Call light within reach. Will endorse to day shift RN. Continue to monitor.
[2017-07-12] MEDS: THYROID 60 MG TABLET PO SCH (06:39)
[2017-07-12] MEDS: PANTOPRAZOLE SODIUM 40 MG TABLET.DR PO SCH (06:39)
[2017-07-12] MEDS: Z GUARD REMEDY PASTE 57 GM TUBE TOP PRN (06:57)
[2017-07-12 07:25] LABS: BASOPHILS % (AUTO) 0.2 % (0.0-2.0); EOSINOPHILS # (AUTO) 0.1 K/uL (0.0-0.7); EOSINOPHILS % (AUTO) 0.4 % (0.0-7.0); HEMATOCRIT 39.5 % (37-47); HEMOGLOBIN 12.4 G/DL (12.0-16.0); LYMPHOCYTES # (AUTO) 0.9 K/UL (0.8-4.8); LYMPHOCYTES % (AUTO) 4.5 % (20.5-51.5); MEAN CORPUSCULAR HEMOGLOBIN 25.4 UUG (27.0-31.0); MEAN CORPUSCULAR HGB CONC 32 g/dL (32.0-37.0); MEAN CORPUSCULAR VOLUME 80.5 FL (81.0-99.0); MONOCYTES # (AUTO) 1.5 K/UL (0.1-1.30); MONOCYTES % (AUTO) 7.5 % (0.0-11.0); NEUTROPHILS # (AUTO) 17.4 K/UL (1.8-8.9); NEUTROPHILS % (AUTO) 87.4 % (38.5-71.5); PLATELET COUNT (AUTO) 443 K/UL (150-450); RED BLOOD CELL COUNT(AUTO) 4.91 MIL/UL (4.2-5.4); WHITE BLOOD COUNT (AUTO) 19.9 K/UL (4.0-11.2)
[2017-07-12 08:25] VITALS: BP 131/60
--- NOTE | 2017-07-12 09:20 | NUR ---
SBAR report received near bedside. Pt assessed, no c/o distress or pain, currently participating with PT. V/S stable, BP recorded and Pt compliant with all routine morning medications. Will continue to monitor for safety.
[2017-07-12] MEDS: LACTOBACILLUS RHAMNOSUS GG 1 EACH CAPSULE PO SCH ×2 (09:22→20:37)
[2017-07-12 09:28] LABS: BAND % (MANUAL) 2 % (0-10); LYMPHOCYTES % (MANUAL) 8 % (20-40); MONOCYTES % (MANUAL) 6 % (2-10); NEUTROPHILS % (MANUAL) 84 % (42-75)
[2017-07-12] MEDS: DILTIAZEM HCL CD 240 MG CAP.SR.24H PO SCH (09:28)
[2017-07-12] MEDS: METOPROLOL TARTRATE 25 MG TABLET PO SCH ×2 (09:29→20:38)
[2017-07-12] MEDS: CAPSAICIN 0.025% CREAM 56.6 GM TUBE TOP SCH ×4 (09:33→21:16)
[2017-07-12] MEDS: ACETAMINOPHEN 325 MG TABLET PO PRN (10:55)
--- NOTE | 2017-07-12 10:57 | NUR ---
Pt c/o headache 4-5/10 pain. Tylenol administered per PRN orders. BP 114/60. Niece and visiting at bedside. Shower anticipated shortly. Will continue to monitor.
--- NOTE | 2017-07-12 15:57 | NUR ---
Clinical Pharmacy Note: Vancomycin Pharmacy to Dose Subjective: To start vanco dosing for 87 y/o female pt for sepsis, HCAP. Objective: height 63 '' weight 86 lb BUN 21 Scr 0.6 WBC 19.9 temp 98.3 Assessment/Plan Will start vanco 750 mg IVPB q39h for predicted vancomycin trough level of 15 mcg/ml at steady state. 1st dose is due today at 1800. Plan to draw vanco trough level before 4th dose (not yet ordered). will monitor renal function & adjust dose for any slight changes in srcr. Will follow
--- NOTE | 2017-07-12 16:00 | NUR ---
Pt seen by , Dr. Humphrey, plan of care discussed. 2L of O2 via NC placed. Pt denies any c/o SOB and O2 sat on oxygen is 96%. Will continue to monitor status.
--- NOTE | 2017-07-12 18:30 | NUR ---
Pt displaying s/s of with anxiety increasing. PRN Xanax administered per orders. Pt has been refusing to have an IV started r/t blood being drawn earlier today. Will continue to work with Pt r/t pending IV medication orders. All comfort and safety measures in place and caregiver at bedside. Will continue to monitor and endorse to household appliance installer.
[2017-07-12] MEDS: RIVAROXABAN 15 MG TABLET PO SCH (18:45)
--- NOTE | 2017-07-12 19:30 | NUR ---
RECEIVED PT FROM DAY SHIFT NURSE. SHIFT REPORT AT BEDSIDE. PATIENT LYING IN BED WITH FAMILY AND CAREGIVER AT BEDSIDE. PT ALERT BUT SLIGHTLY CONFUSED, WITH NO SIGNS OF PAIN, SOB, OR ACUTE DISTRESS. PERTINENT ASSESSMENTS DONE. SAFETY MEASURES IMPLEMENTED. CALL LIGHT PLACED WITHIN REACH. WILL CONTINUE TO MONITOR PT THROUGH OUT SHIFT.
[2017-07-12 20:00] VITALS: BP 109/56
[2017-07-12] MEDS: DOCUSATE SODIUM 100 MG CAPSULE PO SCH (20:37)
[2017-07-12] MEDS: TRAMADOL HCL 50 MG TABLET PO PRN (20:38)
--- NOTE | 2017-07-12 20:45 | NUR ---
DAY SHIFT NURSE ENDORSED THAT PT NEEDS TO BE STARTED ON ATB THERAPY. PERIPHERAL IV STARTED ON RIGHT FOREARM 20G. ACCORDING TO MD PT HAS SIGNIFICANT LEUKOCYTOSIS. UA RESULTS STILL PENDING. PT TO BE STARTED ON BROAD SPECTRUM ATB. MD MILLER ORDERED MERREM 1G IV WELL VANCO 750MG IV. POSSIBLE D/C TO MED SURG TOMORROW TO CONTINUE ATB. WILL START ATBS AND CARRY OUT ORDER.
[2017-07-12] MEDS: VANCOMYCIN IV 750 MG in IV DEXTROSE 5% 250 ML IV SCH (21:13)
[2017-07-12] MEDS ORDERED: MEROPENEM 1 G in IV NORMAL SALINE 100 ML IV SCH (22:00)
[2017-07-12] MEDS: MEROPENEM 1 G in IV NORMAL SALINE 100 ML IV SCH (22:06)
[2017-07-13] MEDS: PANTOPRAZOLE SODIUM 40 MG TABLET.DR PO SCH (06:11)
[2017-07-13] MEDS: THYROID 60 MG TABLET PO SCH (06:12)
--- NOTE | 2017-07-13 06:51 | NUR ---
PT SLEPT WELL THROUGH OUT SHIFT. NO SIGNS OF PAIN, SOB, OR ACUTE DISTRESS. ALL NEEDS ATTENDED TO. MEDICATIONS ADMINISTERED ORDERED. CALL LIGHT WITHIN REACH OF PT. SAFETY MEASURES IMPLEMENTED. WILL ENDORSE TO DAY SHIFT NURSE.
[2017-07-13 08:55] VITALS: BP 103/55
[2017-07-13] MEDS: DILTIAZEM HCL CD 240 MG CAP.SR.24H PO SCH (09:02)
[2017-07-13] MEDS: METOPROLOL TARTRATE 25 MG TABLET PO SCH ×2 (09:04→21:00)
[2017-07-13] MEDS: CAPSAICIN 0.025% CREAM 56.6 GM TUBE TOP SCH ×4 (09:09→21:43)
[2017-07-13] MEDS: LACTOBACILLUS RHAMNOSUS GG 1 EACH CAPSULE PO SCH ×2 (09:10→21:41)
--- NOTE | 2017-07-13 10:30 | NUR ---
SBAR report received at bedside, board updated, and Pt assessed. No SOB or c/o pain /dicomfort. v/s WNL for Pt baseline. Pt compliant with all routine morning medications. Physical Therapy cut short due to low HR of 45-50 and Pt report of fatigue during standing. HR returned to normal 80 and above once returned to bed laying in semi-fowlers position. Hydration and rest encouraged. Plan of care discussed with Pt and family to attempt continuing therapy at a later time. Will continue to monitor v/s and Pt status closely.
[2017-07-13] MEDS: MEROPENEM 1 G in IV NORMAL SALINE 100 ML IV SCH ×2 (11:05→21:41)
--- NOTE | 2017-07-13 12:30 | NUR ---
Pt and family notified of change in plan to d/c at a later day r/t elevated WBC and initiation of Vancomycin and Merrem antibiotics. No c/o pain or distress noted. All comfort and safety measures met. Call light and personal belongings within reach. Will continue to monitor.
--- NOTE | 2017-07-13 14:14 | NUR ---
Clinical Pharmacy Note: Vancomycin Pharmacy to Dose Subjective: To continue vanco dosing for 87 y/o female pt for sepsis, HCAP. Objective: height 63 '' weight 86 lb BUN 21(07/11) Scr 0.6(07/11) WBC 19.9(07/11) temp 97.4 Assessment/Plan Will continue vanco 750 mg IVPB q39h for predicted vancomycin trough level of 15 mcg/ml at steady state. Second dose is due tomorrow at 0900. Plan to draw vanco trough level before 4th dose (not yet ordered). will monitor renal function & adjust dose for any slight changes in srcr. Will follow.
[2017-07-13] MEDS: ACETAMINOPHEN 325 MG TABLET PO PRN (16:26)
[2017-07-13] MEDS: RIVAROXABAN 15 MG TABLET PO SCH (17:25)
[2017-07-13 20:00] VITALS: BP 108/52
--- NOTE | 2017-07-13 20:30 | NUR ---
Received pt on bed awake with episodes of confusion. Reoriented pt. No acute distress noted. No facial grimacing noted or any signs of pain. No SOB. Vital signs stable. IV on Right forearm intact and patent, IV meds given as ordered, pt tolerated well. Incontinent care rendered. Call light within reach. Frequently checked for safety. bed alarm on. All needs anticipated. Will continue to monitor.
[2017-07-13 21:24] LABS: ALANINE AMINOTRANSFERASE 91 U/L (14-59); ALKALINE PHOSPHATASE 177 U/L (50-136); ASPARTATE AMINOTRANSFERASE 22 U/L (15-37); BILIRUBIN,TOTAL 0.3 mg/dL (0.2-1.0); CARBON DIOXIDE 28 mmol/L (21-32); CHLORIDE 106 mmol/L (98-107); CREATININE 0.7 mg/dL (0.6-1.3); GLUCOSE 156 mg/dL (74-106); POTASSIUM 4.1 mmol/L (3.5-5.1); TOTAL PROTEIN, SERUM 6.3 g/dL (6.4-8.2); UREA NITROGEN, BLOOD 27 mg/dL (7-18)
[2017-07-13] MEDS: DOCUSATE SODIUM 100 MG CAPSULE PO SCH (21:41)
[2017-07-13] MEDS: ALPRAZOLAM 0.5 MG TABLET PO PRN (21:41)
[2017-07-14] MEDS: TRAMADOL HCL 50 MG TABLET PO PRN ×2 (01:23→08:13)
[2017-07-14] MEDS: THYROID 60 MG TABLET PO SCH (06:16)
[2017-07-14] MEDS: PANTOPRAZOLE SODIUM 40 MG TABLET.DR PO SCH (06:16)
--- NOTE | 2017-07-14 06:50 | NUR ---
Pt slept comfortably throughout the shift. No acute distress noted. No complaints of pain or discomfort. Kept clean, dry and comfortable. Call light within reach. All needs attended.
[2017-07-14 07:53] LABS: CARBON DIOXIDE 29 mmol/L (21-32); CHLORIDE 106 mmol/L (98-107); CREATININE 0.6 mg/dL (0.6-1.3); GLUCOSE 76 mg/dL (74-106); MAGNESIUM 2.1 mg/dL (1.8-2.4); PHOSPHOROUS 4.1 mg/dL (2.5-4.9); POTASSIUM 4.6 mmol/L (3.5-5.1); UREA NITROGEN, BLOOD 21 mg/dL (7-18)
[2017-07-14] MEDS: LACTOBACILLUS RHAMNOSUS GG 1 EACH CAPSULE PO SCH (08:11)
[2017-07-14] MEDS: DILTIAZEM HCL CD 240 MG CAP.SR.24H PO SCH (08:12)
[2017-07-14] MEDS: ALPRAZOLAM 0.5 MG TABLET PO PRN (08:13)
[2017-07-14] MEDS: CAPSAICIN 0.025% CREAM 56.6 GM TUBE TOP SCH (08:14)
[2017-07-14] MEDS: METOPROLOL TARTRATE 25 MG TABLET PO SCH (08:14)
[2017-07-14 08:24] VITALS: BP 115/82
[2017-07-14] MEDS: VANCOMYCIN IV 750 MG in IV DEXTROSE 5% 250 ML IV SCH (09:00)
[2017-07-14 09:19] LABS: BASOPHILS # (AUTO) 0.1 K/uL (0.0-8.0); BASOPHILS % (AUTO) 0.3 % (0.0-2.0); EOSINOPHILS # (AUTO) 0.1 K/uL (0.0-0.7); EOSINOPHILS % (AUTO) 0.3 % (0.0-7.0); HEMATOCRIT 37.6 % (31.2-41.9); HEMOGLOBIN 12.4 g/dL (10.9-14.3); LYMPHOCYTES # (AUTO) 0.9 K/uL (20.0-40.0); LYMPHOCYTES % (AUTO) 4.8 % (20.5-51.5); MEAN CORPUSCULAR HEMOGLOBIN 26.6 uug (24.7-32.8); MEAN CORPUSCULAR HGB CONC 33 g/dL (32.3-35.6); MEAN CORPUSCULAR VOLUME 80.9 fL (75.5-95.3); MONOCYTES # (AUTO) 0.7 K/uL (2.0-10.0); MONOCYTES % (AUTO) 3.7 % (0.0-11.0); NEUTROPHILS # (AUTO) 17.3 K/uL (1.8-8.9); NEUTROPHILS % (AUTO) 90.9 % (38.5-71.5); PLATELET COUNT (AUTO) 364 K/uL (179-408); RED BLOOD CELL COUNT(AUTO) 4.65 MIL/uL (3.63-4.92); WHITE BLOOD COUNT (AUTO) 19.1 K/uL (3.8-11.8)
[2017-07-14 09:45] LABS: BAND % (MANUAL) 3 % (0-10); LYMPHOCYTES % (MANUAL) 8 % (20-40); MONOCYTES % (MANUAL) 2 % (2-10); NEUTROPHILS % (MANUAL) 87 % (42-75)
[2017-07-14] MEDS: MEROPENEM 1 G in IV NORMAL SALINE 100 ML IV SCH (09:53)
--- NOTE | 2017-07-14 10:30 | NUR ---
IV BECAME DISLODGED, PATIENT REFUSED NEW IV PLACEMENT, VANCOMYCIN HELD, DOCTOR MILLER CALLED AND AWAITING NEW ORDERS FOR ORAL ANTIBIOTICS
[2017-07-14] MEDS ORDERED: LEVOFLOXACIN 500 MG TABLET PO SCH (12:30)
[2017-07-14 14:07] LABS: *BILIRUBIN,URIN NEGATIVE (NEGATIVE); *BLOOD, URINE 1+ (NEGATIVE); *CLARITY,URINE CLEAR (CLEAR); *COLOR,URINE YELLOW (YELLOW); *KETONES,URINE NEGATIVE (NEGATIVE); *PROTEIN,URINE TRACE (NEGATIVE); *UROBILINOGEN,URINE 0.2 E.U./dl (NORMAL); LEUKOCYTE ESTERASE ,URINE 1+ (NEGATIVE); NITRITE, URINE NEGATIVE (NEGATIVE); PH,URINE 5.5 (5.0-8.0); UGLUCOSE NEGATIVE (NEGATIVE)
[2017-07-14 14:13] LABS: BACTERIA,URINE MODERATE /HPF (NONE SEEN); SQUAMOUS EPITHELIAL CELL,UR FEW /HPF (NONE SEEN)
--- NOTE | 2017-07-14 14:25 | NUR ---
118/58, 95% ON ROOM AIR, 18 RESP, 104 PULSE (ELEVATED PULSE IS NORMAL FOR THIS PATIENT), NO COMPLAINTS OF PAIN, NO SIGNS OF DISTRESS, DISCHARGE INSTRUCTIONS PROVIDED, EXIT CARE DONE, UA SENT TO LAB FOLLOWING DISCHARGE, FOLLOW UP APPOINTMENT WITH MD MILLER IN PLACE FOR Jun. MEDICATION LIST FAXED TO PHARMACY, HOME HEALTH PEGASUS ARRANGED, PATIENT LEFT FACILITY VIA GURNEY/AMBULANCE. PATIENT LEFT IN STABLE CONDITION, FAMILY PRESENT UPON DEPARTURE, SURGICAL SITE DOCUMENTED AND PLACED IN CHARGE, FRONT WHEEL WALKER, WHEELCHAIR, AND CUSHION DME'S SENT HOME WITH PATIENT
== END 2017-07-14 14:25 | disposition home health service (06) | DRG 559 ==
PROVIDERS: ADMIT Physical Medicine & Rehabilitation Pain Medicine; ATTEND Physical Medicine & Rehabilitation Pain Medicine
PROC: 3E0U33Z Introduction of Anti-inflammatory into Joints, Percutaneous Approach (ICD-10-PCS; principal; 2017-07-09)
PROC: 3E0U3BZ Introduction of Anesthetic Agent into Joints, Percutaneous Approach (ICD-10-PCS; principal; 2017-07-09)
DX: M84.451D Pathological fracture, right femur, subsequent encounter for fracture with routine healing (principal); R65.20 Severe sepsis without septic shock; J69.0 Pneumonitis due to inhalation of food and vomit; E43 Unspecified severe protein-calorie malnutrition; E87.2 Acidosis; D68.59 Other primary thrombophilia; S09.90XA Unspecified injury of head, initial encounter; I48.0 Paroxysmal atrial fibrillation; I47.1 Supraventricular tachycardia; Z68.1 Body mass index [BMI] 19.9 or less, adult; J98.11 Atelectasis; M17.0 Bilateral primary osteoarthritis of knee; G30.9 Alzheimer's disease, unspecified; F02.80 Dementia in other diseases classified elsewhere, unspecified severity, without behavioral disturbance, psychotic disturbance, mood disturbance, and anxiety; Z96.641 Presence of right artificial hip joint; R26.9 Unspecified abnormalities of gait and mobility; R53.1 Weakness; K56.41 Fecal impaction; I70.0 Atherosclerosis of aorta; E03.9 Hypothyroidism, unspecified; Z87.440 Personal history of urinary (tract) infections; R62.7 Adult failure to thrive; R63.4 Abnormal weight loss; R74.0 Nonspecific elevation of levels of transaminase and lactic acid dehydrogenase [LDH]; R07.89 Other chest pain; R63.6 Underweight; M06.9 Rheumatoid arthritis, unspecified; Z88.0 Allergy status to penicillin
CPT/HCPCS: 36415; 70030-TC; 71010; 82306; 83550; 83605; 83735; 84100; 84443; 85025; 87040; 87086; 87400; 92523; 93005; 97110; 97112; 97116; 97165; 97530; 97535; A4663; A9150; C1758; J2185; J3301; J3370; J3490; J7030; J7050; J7060; Q0144

== ENCOUNTER 2017-06-25 08:23 | Inpatient (IN) | payer MEDICARE, OTHER ==
[~2017-06-25] VITALS: Ht 157.5 cm; Wt 39.0 kg
[~2017-06-25 08:23] MED LIST changes: +LEVO500T2 PO; +RIVA10TA PO; +THYR90TA PO; +TRAM50TA2 PO
--- NOTE | 2017-06-25 08:30 | NUR ---
DR SINGH AT THE BEDSIDE FOR EVAL AND EXAM.
[2017-06-25] MEDS ORDERED: DILTIAZEM HCL IV 10 MG in IV DEXTROSE 5% 100 ML IV ONE (08:45)
[2017-06-25] MEDS ORDERED: ASPIRIN 81 MG TAB.CHEW PO ONE (08:45)
[2017-06-25] MEDS ORDERED: DILTIAZEM HCL 25 MG IV IV ONE ×2 (08:45→15:15)
[2017-06-25] MEDS ORDERED: DILTIAZEM HCL 25 MG IV ONE (08:52)
[2017-06-25] MEDS ORDERED: ASPIRIN 81 MG TAB.CHEW ONE (08:59)
--- NOTE | 2017-06-25 08:59 | NUR ---
PT STATES FEELING BETTER, FAMILY AT THE BEDSIDE.
[2017-06-25] MEDS ORDERED: LEVOFLOXACIN 750MG/D5W 150 ML IV ONE ×2 (09:00→09:27)
[2017-06-25] MEDS ORDERED: VANCOMYCIN IV 1,000 MG in IV DEXTROSE 5% 250 ML IV ONE (09:00)
[2017-06-25] MEDS ORDERED: IV NORMAL SALINE 1000 ML BAG IV ONE (09:00)
[2017-06-25] MEDS ORDERED: VANCOMYCIN IV 200 ML ONE (09:27)
[2017-06-25] MEDS ORDERED: IV NORMAL SALINE 500 ML BAG IV ONE (09:45)
--- NOTE | 2017-06-25 09:53 | NUR ---
[facility] COLLECTED AND SENT TO LAB, BELONGING LIST COMPLETED.
--- NOTE | 2017-06-25 11:35 | NUR ---
Received pt from ER. Tele SNR 90's with PAC. Pt is in no acute distress. PT forgetfull at times at bedside. Noted Skin on bilateral hands bruising, Right forearm scab, periarea redness, and buttocks redness noted. Ordered Z- guard for skin redness. IV on Left f/a #20 intact and right ac 20# gauge intact. Call light is within reach. Right hip dressing with incision glued in no steri strip nor tonya noted.
[2017-06-25 11:58] VITALS: BP 99/51
--- NOTE | 2017-06-25 15:00 | NUR ---
Tele bus driver/monitor noted pt had an episode of converting from SNR to afib back to SNR . Awaiting admitting orders from DR white. Pt is in no acute distress. Call light is within reach.
[2017-06-25] MEDS ORDERED: ONDANSETRON 4 MG/2 ML VIAL IV PRN (15:15)
[2017-06-25] MEDS ORDERED: ACETAMINOPHEN 325 MG TABLET PO PRN (15:15)
[2017-06-25] MEDS ORDERED: MORPHINE SULFATE 2 MG/1 ML DISP.SYRIN IV PRN (15:15)
[2017-06-25] MEDS ORDERED: TRAMADOL HCL 50 MG TABLET PO PRN (15:15)
[2017-06-25] MEDS ORDERED: RIVAROXABAN 10 MG TABLET PO SCH (15:15)
[2017-06-25] MEDS ORDERED: ZOLPIDEM 5 MG TABLET PO PRN (15:15)
[2017-06-25] MEDS ORDERED: MAGNESIUM HYDROXIDE 30 ML LIQUID UDC PO PRN (15:15)
[2017-06-25 15:40] VITALS: BP 113/63
[2017-06-25] MEDS ORDERED: CEFTRIAXONE 1 G in IV DEXTROSE 5% 50 ML IV SCH (17:00)
[2017-06-25] MEDS: DILTIAZEM HCL 30 MG TABLET PO SCH ×2 (17:05→23:24)
--- NOTE | 2017-06-25 17:17 | NUR ---
Awaiting for xarelto and zithromax to be given by pharmacy. Pt c/o constipation - MOM given. Call light is within reach.
--- NOTE | 2017-06-25 18:34 | NUR ---
Still no xarelto and zithromax will appoint for next shift to give meds.
[2017-06-25 20:22] VITALS: BP 152/63
[2017-06-25] MEDS ORDERED: DOCUSATE SODIUM 250 MG CAPSULE PO SCH (21:00)
[2017-06-25] MEDS: AZITHROMYCIN IV 500 MG in IV DEXTROSE 5% 250 ML IV SCH (21:01)
[2017-06-25] MEDS: RIVAROXABAN 15 MG TABLET PO SCH (21:02)
[2017-06-25] MEDS: DOCUSATE SODIUM 100 MG CAPSULE PO SCH (21:07)
[2017-06-25] MEDS ORDERED: VANCOMYCIN IV 750 MG in IV DEXTROSE 5% 250 ML IV ONE (21:15)
--- NOTE | 2017-06-25 21:19 | NUR ---
PHARMACY NOTES ( VANCOMYCIN DOSING) S: 87 YO female; with diagnosis of Early sepsis with lactic acidosis d/t PNA ( likely HCAP). was previously treated with rocephine and zithromax . ID wants to change to vanco, merrem, zithromax. Pt was previously on vancomycin at [facility] (regimen: 500 mg q18h which resulted in trough of 6) O: BUN /SCR 15/0.6, WBC 13, DOSING WT 86 LBS A/P: Will dose vancomycin by fall of the level. will give one dose of vancomcyin 750 mg x 1 and order level by 1900 tomorrow and adjust the dose if necessary.
[2017-06-25] MEDS ORDERED: MEROPENEM 1 G in IV NORMAL SALINE 100 ML IV SCH (22:00)
[2017-06-25] MEDS ORDERED: MAGNESIUM CITRATE 296 ML BOTTLE PO ONE (22:30)
[2017-06-25] MEDS ORDERED: GLYCERIN ADULT RECTAL SUPP EACH RC ONE (22:30)
[2017-06-26 00:02] VITALS: BP 135/55
[2017-06-26] MEDS: MEROPENEM 1 G in IV NORMAL SALINE 100 ML IV SCH ×3 (00:08→20:45)
--- NOTE | 2017-06-26 01:22 | NUR ---
received patient awake and uncomfortable in bed with caregiver at bedside. patient was having abdominal discomfort complaint of constipation. passed formed brow stool with difficulty, given hs dose colace. patient's daughter asked for more laxative noted to Dr. Humphrey ordered and given glycerin supp and mg citrate (only sips was tolerated by pt). she had another formed stool. daughter is concern about pt's diet wanted regular diet rather than cardiac, will tell to doctor in the morning. at this time patient is sleeping. vss. maintained on 02 support. started azithromycin. dvt pumps restarted. call light within reach.
[2017-06-26 04:00] VITALS: BP 128/58
[2017-06-26] MEDS: DILTIAZEM HCL 30 MG TABLET PO SCH (05:39)
[2017-06-26] MEDS: THYROID 60 MG TABLET PO SCH (06:03)
[2017-06-26] MEDS: PANTOPRAZOLE SODIUM 40 MG TABLET.DR PO SCH (06:04)
--- NOTE | 2017-06-26 06:49 | NUR ---
PATIENT SLEPT ON AND OFF DUE TO ABDOMINAL COMPLAINT, HAD FORMED STOOLS 3X. OTHERWISE STILL SR AND ST WITH PAC'S AND PVC'S IN TELE WITH STABLE VITAL SIGNS. KEPT SAFE AND MONITORED. CALL LIGHT WITHIN REACH.
[2017-06-26 06:57] LABS: BASOPHILS # (AUTO) 0.1 K/uL (0.0-8.0); BASOPHILS % (AUTO) 0.8 % (0.0-2.0); EOSINOPHILS # (AUTO) 0.1 K/uL (0.0-0.7); EOSINOPHILS % (AUTO) 1.6 % (0.0-7.0); HEMATOCRIT 32.6 % (31.2-41.9); HEMOGLOBIN 10.8 g/dL (10.9-14.3); LYMPHOCYTES # (AUTO) 0.8 K/uL (20.0-40.0); LYMPHOCYTES % (AUTO) 10.5 % (20.5-51.5); MEAN CORPUSCULAR HEMOGLOBIN 26.4 uug (24.7-32.8); MEAN CORPUSCULAR HGB CONC 33 g/dL (32.3-35.6); MEAN CORPUSCULAR VOLUME 79.4 fL (75.5-95.3); MONOCYTES # (AUTO) 0.5 K/uL (2.0-10.0); MONOCYTES % (AUTO) 6.3 % (0.0-11.0); NEUTROPHILS # (AUTO) 6.4 K/uL (1.8-8.9); NEUTROPHILS % (AUTO) 80.8 % (38.5-71.5); PLATELET COUNT (AUTO) 396 K/uL (179-408); WHITE BLOOD COUNT (AUTO) 7.9 K/uL (3.8-11.8)
[2017-06-26 07:22] LABS: ALANINE AMINOTRANSFERASE 26 U/L (14-59); ALKALINE PHOSPHATASE 90 U/L (50-136); ASPARTATE AMINOTRANSFERASE 20 U/L (15-37); BILIRUBIN,TOTAL 0.3 mg/dL (0.2-1.0); CARBON DIOXIDE 26 mmol/L (21-32); CHLORIDE 108 mmol/L (98-107); CREATININE 0.6 mg/dL (0.6-1.3); GLUCOSE 93 mg/dL (74-106); MAGNESIUM 2.1 mg/dL (1.8-2.4); POTASSIUM 3.7 mmol/L (3.5-5.1); TOTAL PROTEIN, SERUM 5.8 g/dL (6.4-8.2); UREA NITROGEN, BLOOD 11 mg/dL (7-18)
[2017-06-26] MEDS ORDERED: Medication Not On Formulary EA (Thyroid (Armour Thyroid) 90 MG) PO SCH (09:00)
[2017-06-26 11:16] VITALS: BP 120/50
[2017-06-26] MEDS: DILTIAZEM HCL CD 240 MG CAP.SR.24H PO SCH (11:34)
[2017-06-26 15:11] VITALS: BP 105/46
[2017-06-26] MEDS: IV NS 1000 ML 1,000 ML IV PRN (15:37)
--- NOTE | 2017-06-26 15:47 | NUR ---
Clinical pharmacy note: Vancomycin pharmacy to dose Subjective: To continue vancomycin in this 87 yo female for HCAP, sepsis Objective: height 157 cm weight 86 lb BUN 11 Scr 0.6 Wbc 7.9 temp 97.4 Assessment/Plan Patient received vancomycin 750mg IVPB x1 on 06/25 at 2300. Plan to draw vanco random level today at 1800. Pharmacy shall review the level & dose further if needed. Will continue to monitor. Addendum: 06/26/17 at 1910 by LYNN LOPEZ RANDOM VANCOMYCIN LEVEL 7.1 WILL ORDER ANOTHER 750MG OF VANCOMYCIN IVPB. REPEAT VANCOMYCIN LEVEL TOMORROW EVENING
[2017-06-26] MEDS: AZITHROMYCIN IV 500 MG in IV DEXTROSE 5% 250 ML IV SCH (16:52)
[2017-06-26] MEDS: RIVAROXABAN 15 MG TABLET PO SCH (16:54)
--- NOTE | 2017-06-26 19:30 | NUR ---
NSG: PT RECEIVED A/O BUT FORGETFUL. NO ACUTE DISTRESS NOTED. TELE SR. SYMPTOMATIC IV SITE, PAINFUL. WILL RESTART. DRESSING ON RIGHT HIP DRY AND INTACT. ABDUCTOR PILLOW IN PLACE. AT THE BEDSIDE. CONT TO MONITOR.
[2017-06-26 20:00] VITALS: BP 136/46
[2017-06-26] MEDS: DOCUSATE SODIUM 100 MG CAPSULE PO SCH (20:45)
[2017-06-26] MEDS: LACTOBACILLUS RHAMNOSUS GG 1 EACH CAPSULE PO SCH (20:45)
[2017-06-26] MEDS ORDERED: VANCOMYCIN IV 750 MG in IV DEXTROSE 5% 250 ML IV ONE (21:00)
[2017-06-27] VITALS: BP 114/51
--- NOTE | 2017-06-27 | NUR ---
NSG: PT AWAKE BUT NO DISTRESS NOTED.
[2017-06-27 04:00] VITALS: BP 135/57
--- NOTE | 2017-06-27 06:00 | NUR ---
NSG: ALL NEEDS ATTENDED. KEPT CLEAN AND DRY. REPOSITIONED.
[2017-06-27 06:30] LABS: BASOPHILS % (AUTO) 0.7 % (0.0-2.0); EOSINOPHILS # (AUTO) 0.2 K/uL (0.0-0.7); EOSINOPHILS % (AUTO) 2.7 % (0.0-7.0); HEMATOCRIT 32.7 % (31.2-41.9); HEMOGLOBIN 10.7 g/dL (10.9-14.3); LYMPHOCYTES # (AUTO) 0.8 K/uL (20.0-40.0); LYMPHOCYTES % (AUTO) 13.2 % (20.5-51.5); MEAN CORPUSCULAR HEMOGLOBIN 26.2 uug (24.7-32.8); MEAN CORPUSCULAR HGB CONC 33 g/dL (32.3-35.6); MONOCYTES # (AUTO) 0.5 K/uL (2.0-10.0); MONOCYTES % (AUTO) 8.5 % (0.0-11.0); NEUTROPHILS # (AUTO) 4.7 K/uL (1.8-8.9); NEUTROPHILS % (AUTO) 74.9 % (38.5-71.5); PLATELET COUNT (AUTO) 397 K/uL (179-408); RED BLOOD CELL COUNT(AUTO) 4.08 MIL/uL (3.63-4.92); WHITE BLOOD COUNT (AUTO) 6.3 K/uL (3.8-11.8)
[2017-06-27 06:52] LABS: ALANINE AMINOTRANSFERASE 24 U/L (14-59); ALKALINE PHOSPHATASE 97 U/L (50-136); ASPARTATE AMINOTRANSFERASE 18 U/L (15-37); BILIRUBIN,TOTAL 0.4 mg/dL (0.2-1.0); CARBON DIOXIDE 32 mmol/L (21-32); CHLORIDE 110 mmol/L (98-107); CREATININE 0.5 mg/dL (0.6-1.3); GLUCOSE 92 mg/dL (74-106); MAGNESIUM 2.1 mg/dL (1.8-2.4); PHOSPHOROUS 2.9 mg/dL (2.5-4.9); POTASSIUM 3.5 mmol/L (3.5-5.1); TOTAL PROTEIN, SERUM 5.6 g/dL (6.4-8.2); UREA NITROGEN, BLOOD 6 mg/dL (7-18)
[2017-06-27] MEDS: THYROID 60 MG TABLET PO SCH (06:54)
[2017-06-27] MEDS: PANTOPRAZOLE SODIUM 40 MG TABLET.DR PO SCH (06:54)
[2017-06-27 07:31] VITALS: BP 130/50
--- NOTE | 2017-06-27 08:00 | NUR ---
AWAKE ALERT AND PLEASANT NO SIGNS OF PAIN OR DISTRESS, NO REACTION FROM IV ANTIBIOTICS. CONTINUE PLAN OF CARE
[2017-06-27] MEDS: DILTIAZEM HCL CD 240 MG CAP.SR.24H PO SCH (08:42)
[2017-06-27] MEDS: LACTOBACILLUS RHAMNOSUS GG 1 EACH CAPSULE PO SCH (08:43)
[2017-06-27] MEDS: MEROPENEM 1 G in IV NORMAL SALINE 100 ML IV SCH (09:00)
--- NOTE | 2017-06-27 10:30 | NUR ---
SEEN BY PHYSICAL THERAPY FOR EXERCISES, SEE NOTES
[2017-06-27 11:06] VITALS: BP 140/59
--- NOTE | 2017-06-27 15:00 | NUR ---
SEEN BY DR MARISCAL WITH ORDER FOR DISCHARGE TO [facility]CHANIC AWARE
[2017-06-27 15:10] VITALS: BP 118/53
[2017-06-27] MEDS: IV NS 1000 ML 1,000 ML IV PRN (15:46)
[2017-06-27] MEDS ORDERED: MERO1VIA IV (17:20)
[2017-06-27] MEDS ORDERED: LACT1CAP57 PO (17:20)
[2017-06-27] MEDS ORDERED: AZIT250T6 PO (17:20)
[2017-06-27] MEDS ORDERED: ACET325T53 PO (17:20)
[2017-06-27] MEDS ORDERED: PANT40TA2 PO (17:20)
[2017-06-27] MEDS ORDERED: RIVA15TA PO (17:20)
[2017-06-27] MEDS ORDERED: MAGN400O6 PO (17:20)
[2017-06-27] MEDS ORDERED: DOCU100C36 PO (17:20)
[2017-06-27] MEDS ORDERED: DILT240C64 PO (17:20)
[2017-06-27] MEDS ORDERED: AZITHROMYCIN 250 MG TABLET PO SCH (18:00)
[2017-06-27] MEDS: RIVAROXABAN 15 MG TABLET PO SCH (18:12)
--- NOTE | 2017-06-27 18:17 | NUR ---
TRANSFERRED TO [facility] VIA BED STABLE, REPORT GIVEN TO ARU STAFF
== END 2017-06-27 18:30 | DRG 308 ==
LOC: ER 08:23 → DOU 11:08 → TELE-TD 11:45
PROVIDERS: ADMIT Internal Medicine; ATTEND Internal Medicine
DX: I48.0 Paroxysmal atrial fibrillation (principal); E43 Unspecified severe protein-calorie malnutrition; J69.0 Pneumonitis due to inhalation of food and vomit; A41.9 Sepsis, unspecified organism; D68.59 Other primary thrombophilia; F03.90 Unspecified dementia, unspecified severity, without behavioral disturbance, psychotic disturbance, mood disturbance, and anxiety; M06.9 Rheumatoid arthritis, unspecified; Z68.1 Body mass index [BMI] 19.9 or less, adult; S72.001D Fracture of unspecified part of neck of right femur, subsequent encounter for closed fracture with routine healing; X58.XXXD Exposure to other specified factors, subsequent encounter; I47.1 Supraventricular tachycardia; K56.41 Fecal impaction; R62.7 Adult failure to thrive; Z74.09 Other reduced mobility; E03.9 Hypothyroidism, unspecified; Z82.49 Family history of ischemic heart disease and other diseases of the circulatory system; Z79.01 Long term (current) use of anticoagulants; Z79.899 Other long term (current) drug therapy; Z96.641 Presence of right artificial hip joint; Z81.8 Family history of other mental and behavioral disorders
CPT/HCPCS: 36415; 70030-TC; 71010; 83605; 83735; 84100; 85025; 85730; 87040; 93005; 97110; 97116; 97530; A4663; J0456; J0696; J1956; J2185; J3370; J3490; J7030; J7060; Q0144

== ENCOUNTER 2018-09-07 11:19 | Inpatient (IN) | payer MEDICARE, OTHER ==
[~2018-09-07] VITALS: Ht 154.9 cm; Wt 36.8 kg
[~2018-09-07 11:19] MED LIST changes: +ACET325T53 PO; +AZIT250T13 PO; +DILT-11 PO; +DOCU100C36 PO; +LACT1CAP57 PO; +MAGN400O6 PO; +MERO1VIA IV; +PANT40TA2 PO; -RIVA10TA PO; +RIVA15TA PO; -THYROID
[2018-09-07] MEDS ORDERED: ACETAMINOPHEN ES 500 MG TABLET ONE (11:59)
[2018-09-07] MEDS ORDERED: ACETAMINOPHEN ES 500 MG TABLET PO ONE (12:00)
[2018-09-07 13:26] LABS: BASOPHILS % (AUTO) 0.2 % (0.0-2.0); EOSINOPHILS # (AUTO) 0.1 K/uL (0.0-0.7); EOSINOPHILS % (AUTO) 0.8 % (0.0-7.0); HEMATOCRIT 39.9 % (31.2-41.9); HEMOGLOBIN 12.8 g/dL (10.9-14.3); LYMPHOCYTES # (AUTO) 0.4 K/uL (20.0-40.0); LYMPHOCYTES % (AUTO) 2.7 % (20.5-51.5); MEAN CORPUSCULAR HEMOGLOBIN 26.9 uug (24.7-32.8); MEAN CORPUSCULAR HGB CONC 32 g/dL (32.3-35.6); MEAN CORPUSCULAR VOLUME 83.7 fL (75.5-95.3); MONOCYTES # (AUTO) 0.3 K/uL (2.0-10.0); MONOCYTES % (AUTO) 1.7 % (0.0-11.0); NEUTROPHILS # (AUTO) 15.5 K/uL (1.8-8.9); NEUTROPHILS % (AUTO) 94.6 % (38.5-71.5); PLATELET COUNT (AUTO) 302 K/uL (179-408); RED BLOOD CELL COUNT(AUTO) 4.77 MIL/uL (3.63-4.92); WHITE BLOOD COUNT (AUTO) 16.4 K/uL (3.8-11.8)
[2018-09-07 13:34] LABS: CARBON DIOXIDE 27 mmol/L (21-32); CHLORIDE 104 mmol/L (98-107); CREATININE 0.6 mg/dL (0.6-1.3); GLUCOSE 84 mg/dL (74-106); UREA NITROGEN, BLOOD 13 mg/dL (7-18)
[2018-09-07 13:40] LABS: ALANINE AMINOTRANSFERASE 16 U/L (14-59); ALKALINE PHOSPHATASE 88 U/L (50-136); ASPARTATE AMINOTRANSFERASE 15 U/L (15-37); BILIRUBIN,DIRECT 0.1 mg/dL (0.0-0.2); BILIRUBIN,TOTAL 0.5 mg/dL (0.2-1.0); TOTAL PROTEIN, SERUM 7.5 g/dL (6.4-8.2)
[2018-09-07] MEDS ORDERED: HYDROCODONE/APAP 5-325MG TABLET PO PRN (16:30)
[2018-09-07] MEDS ORDERED: ONDANSETRON 4 MG/2 ML VIAL IV PRN (16:30)
[2018-09-07] MEDS ORDERED: MAGNESIUM HYDROXIDE 30 ML LIQUID UDC PO PRN (16:30)
[2018-09-07] MEDS ORDERED: Z GUARD REMEDY PASTE 57 GM TUBE TOP PRN (16:30)
[2018-09-07] MEDS ORDERED: ZOLPIDEM 5 MG TABLET PO PRN (16:30)
[2018-09-07 16:40] VITALS: BP 114/63
[2018-09-07 20:00] VITALS: BP 119/59
[2018-09-07] MEDS: ENOXAPARIN SODIUM 40 MG/0.4 ML DISP.SYRIN SQ SCH (20:20)
[2018-09-07] MEDS: ACETAMINOPHEN 325 MG TABLET PO PRN (21:38)
[2018-09-08 00:25] LABS: *BILIRUBIN,URIN NEGATIVE (NEGATIVE); *BLOOD, URINE NEGATIVE (NEGATIVE); *CLARITY,URINE CLEAR (CLEAR); *COLOR,URINE YELLOW (YELLOW); *KETONES,URINE NEGATIVE (NEGATIVE); *PROTEIN,URINE NEGATIVE (NEGATIVE); *UROBILINOGEN,URINE 0.2 E.U./dl (NORMAL); LEUKOCYTE ESTERASE ,URINE NEGATIVE (NEGATIVE); NITRITE, URINE NEGATIVE (NEGATIVE); UGLUCOSE NEGATIVE (NEGATIVE)
[2018-09-08 00:31] LABS: BACTERIA,URINE NONE SEEN /HPF (NONE SEEN); RBC,URINE 0-3 /HPF (0-3); SQUAMOUS EPITHELIAL CELL,UR MODERATE /HPF (NONE SEEN); WBC,URINE 0-3 /HPF (0-3)
[2018-09-08 05:54] LABS: BASOPHILS # (AUTO) 0.1 K/uL (0.0-8.0); BASOPHILS % (AUTO) 0.7 % (0.0-2.0); EOSINOPHILS # (AUTO) 0.4 K/uL (0.0-0.7); EOSINOPHILS % (AUTO) 4.1 % (0.0-7.0); HEMATOCRIT 36.7 % (31.2-41.9); LYMPHOCYTES # (AUTO) 0.4 K/uL (20.0-40.0); LYMPHOCYTES % (AUTO) 4.4 % (20.5-51.5); MEAN CORPUSCULAR HEMOGLOBIN 26.7 uug (24.7-32.8); MEAN CORPUSCULAR HGB CONC 33 g/dL (32.3-35.6); MEAN CORPUSCULAR VOLUME 81.7 fL (75.5-95.3); MONOCYTES # (AUTO) 0.3 K/uL (2.0-10.0); MONOCYTES % (AUTO) 3.3 % (0.0-11.0); NEUTROPHILS # (AUTO) 8.9 K/uL (1.8-8.9); NEUTROPHILS % (AUTO) 87.5 % (38.5-71.5); PLATELET COUNT (AUTO) 287 K/uL (179-408); RED BLOOD CELL COUNT(AUTO) 4.49 MIL/uL (3.63-4.92); WHITE BLOOD COUNT (AUTO) 10.2 K/uL (3.8-11.8)
[2018-09-08] MEDS: THYROID 60 MG TABLET PO SCH (06:01)
[2018-09-08 06:35] LABS: CARBON DIOXIDE 30 mmol/L (21-32); CHLORIDE 106 mmol/L (98-107); CHOLESTEROL 186 mg/dL (<200); CREATININE 0.5 mg/dL (0.6-1.3); GLUCOSE 86 mg/dL (74-106); HDL CHOLESTEROL 47 mg/dL (40-60); MAGNESIUM 1.8 mg/dL (1.8-2.4); PHOSPHOROUS 3.2 mg/dL (2.5-4.9); POTASSIUM 3.8 mmol/L (3.5-5.1); TRIGLYCERIDES 116 MG/DL (30-150); UREA NITROGEN, BLOOD 10 mg/dL (7-18)
[2018-09-08 06:58] LABS: THYROID STIMULATING HORMONE 11.993 mIU/mL (0.358-3.740)
[2018-09-08 08:00] VITALS: BP 129/72
[2018-09-08] MEDS ORDERED: Medication Not On Formulary EA (Thyroid (Armour Thyroid) 30 MG) PO SCH (09:00)
[2018-09-08] MEDS ORDERED: IPRATROPIUM BROMIDE 0.5 MG/2.5 ML NEBU NEB PRN (09:15)
[2018-09-08 16:05] VITALS: BP 129/67
[2018-09-08 17:24] LABS: *BILIRUBIN,URIN NEGATIVE (NEGATIVE); *BLOOD, URINE NEGATIVE (NEGATIVE); *CLARITY,URINE SLIGHTLY CLOUDY (CLEAR); *COLOR,URINE YELLOW (YELLOW); *KETONES,URINE NEGATIVE (NEGATIVE); *PROTEIN,URINE TRACE (NEGATIVE); LEUKOCYTE ESTERASE ,URINE TRACE (NEGATIVE); NITRITE, URINE POSITIVE (NEGATIVE); UGLUCOSE NEGATIVE (NEGATIVE)
[2018-09-08 17:38] LABS: BACTERIA,URINE MANY /HPF (NONE SEEN); RBC,URINE 0-3 /HPF (0-3); SQUAMOUS EPITHELIAL CELL,UR MODERATE /HPF (NONE SEEN)
[2018-09-08 20:00] VITALS: BP 129/61
[2018-09-08] MEDS: ENOXAPARIN SODIUM 40 MG/0.4 ML DISP.SYRIN SQ SCH (20:38)
[2018-09-09] MEDS: ACETAMINOPHEN 325 MG TABLET PO PRN ×3 (02:49→21:06)
[2018-09-09 05:13] VITALS: BP 128/64
[2018-09-09 05:48] LABS: BASOPHILS # (AUTO) 0.1 K/uL (0.0-8.0); BASOPHILS % (AUTO) 0.5 % (0.0-2.0); EOSINOPHILS # (AUTO) 0.4 K/uL (0.0-0.7); EOSINOPHILS % (AUTO) 3.8 % (0.0-7.0); HEMATOCRIT 34.5 % (31.2-41.9); HEMOGLOBIN 11.3 g/dL (10.9-14.3); LYMPHOCYTES # (AUTO) 0.6 K/uL (20.0-40.0); LYMPHOCYTES % (AUTO) 5.7 % (20.5-51.5); MEAN CORPUSCULAR HEMOGLOBIN 26.9 uug (24.7-32.8); MEAN CORPUSCULAR HGB CONC 33 g/dL (32.3-35.6); MEAN CORPUSCULAR VOLUME 81.7 fL (75.5-95.3); MONOCYTES # (AUTO) 0.4 K/uL (2.0-10.0); NEUTROPHILS # (AUTO) 8.9 K/uL (1.8-8.9); PLATELET COUNT (AUTO) 305 K/uL (179-408); RED BLOOD CELL COUNT(AUTO) 4.22 MIL/uL (3.63-4.92); WHITE BLOOD COUNT (AUTO) 10.4 K/uL (3.8-11.8)
[2018-09-09 05:57] LABS: CARBON DIOXIDE 31 mmol/L (21-32); CHLORIDE 107 mmol/L (98-107); CREATININE 0.7 mg/dL (0.6-1.3); GLUCOSE 90 mg/dL (74-106); MAGNESIUM 2.2 mg/dL (1.8-2.4); PHOSPHOROUS 2.6 mg/dL (2.5-4.9); POTASSIUM 4.5 mmol/L (3.5-5.1); UREA NITROGEN, BLOOD 16 mg/dL (7-18)
[2018-09-09] MEDS: THYROID 60 MG TABLET PO SCH (06:01)
[2018-09-09 11:07] VITALS: BP 114/59
[2018-09-09] MEDS ORDERED: IV NORMAL SALINE 500 ML IV ONE (11:45)
[2018-09-09] MEDS: CEFTRIAXONE 1 G in IV DEXTROSE 5% 50 ML IV SCH (14:49)
[2018-09-09] MEDS: IV NS 1000 ML 1,000 ML IV PRN (14:49)
[2018-09-09 15:03] VITALS: BP 148/52
[2018-09-09 20:00] VITALS: BP 133/76
[2018-09-09] MEDS: ENOXAPARIN SODIUM 40 MG/0.4 ML DISP.SYRIN SQ SCH (21:05)
[2018-09-10 04:00] VITALS: BP 121/83
[2018-09-10] MEDS: THYROID 60 MG TABLET PO SCH (06:18)
[2018-09-10] MEDS: IV NS 1000 ML 1,000 ML IV PRN (06:21)
[2018-09-10 06:31] LABS: BASOPHILS # (AUTO) 0.1 K/uL (0.0-8.0); BASOPHILS % (AUTO) 0.6 % (0.0-2.0); EOSINOPHILS # (AUTO) 0.9 K/uL (0.0-0.7); EOSINOPHILS % (AUTO) 8.2 % (0.0-7.0); HEMATOCRIT 36.5 % (31.2-41.9); HEMOGLOBIN 11.7 g/dL (10.9-14.3); LYMPHOCYTES # (AUTO) 0.7 K/uL (20.0-40.0); LYMPHOCYTES % (AUTO) 6.2 % (20.5-51.5); MEAN CORPUSCULAR HEMOGLOBIN 27.1 uug (24.7-32.8); MEAN CORPUSCULAR HGB CONC 32 g/dL (32.3-35.6); MEAN CORPUSCULAR VOLUME 84.2 fL (75.5-95.3); MONOCYTES # (AUTO) 0.3 K/uL (2.0-10.0); NEUTROPHILS # (AUTO) 8.7 K/uL (1.8-8.9); PLATELET COUNT (AUTO) 276 K/uL (179-408); RED BLOOD CELL COUNT(AUTO) 4.34 MIL/uL (3.63-4.92); WHITE BLOOD COUNT (AUTO) 10.6 K/uL (3.8-11.8)
[2018-09-10 06:45] LABS: CARBON DIOXIDE 28 mmol/L (21-32); CHLORIDE 107 mmol/L (98-107); CREATININE 0.6 mg/dL (0.6-1.3); GLUCOSE 82 mg/dL (74-106); PHOSPHOROUS 2.3 mg/dL (2.5-4.9); POTASSIUM 4.3 mmol/L (3.5-5.1); UREA NITROGEN, BLOOD 17 mg/dL (7-18)
[2018-09-10] MEDS: CEFTRIAXONE 1 G in IV DEXTROSE 5% 50 ML IV SCH (10:41)
[2018-09-10 12:00] VITALS: BP 124/67
[2018-09-10] MEDS ORDERED: NEUTRA PHOS PACKET PO ONE (12:00)
[2018-09-10 16:14] VITALS: BP 106/77
[2018-09-10 19:00] VITALS: BP 147/65
[2018-09-10] MEDS: ENOXAPARIN SODIUM 40 MG/0.4 ML DISP.SYRIN SQ SCH (20:22)
[2018-09-11] MEDS: IV NS 1000 ML 1,000 ML IV PRN (00:41)
[2018-09-11] MEDS: ACETAMINOPHEN 325 MG TABLET PO PRN (03:21)
[2018-09-11 04:00] VITALS: BP 148/75
[2018-09-11 06:34] LABS: CARBON DIOXIDE 27 mmol/L (21-32); CHLORIDE 107 mmol/L (98-107); CREATININE 0.6 mg/dL (0.6-1.3); GLUCOSE 83 mg/dL (74-106); POTASSIUM 4.1 mmol/L (3.5-5.1); UREA NITROGEN, BLOOD 13 mg/dL (7-18)
[2018-09-11 06:37] LABS: BASOPHILS # (AUTO) 0.1 K/uL (0.0-8.0); BASOPHILS % (AUTO) 0.8 % (0.0-2.0); EOSINOPHILS # (AUTO) 0.6 K/uL (0.0-0.7); EOSINOPHILS % (AUTO) 5.5 % (0.0-7.0); HEMATOCRIT 35.7 % (31.2-41.9); HEMOGLOBIN 11.6 g/dL (10.9-14.3); LYMPHOCYTES # (AUTO) 0.7 K/uL (20.0-40.0); LYMPHOCYTES % (AUTO) 5.9 % (20.5-51.5); MEAN CORPUSCULAR HEMOGLOBIN 27.2 uug (24.7-32.8); MEAN CORPUSCULAR HGB CONC 32 g/dL (32.3-35.6); MEAN CORPUSCULAR VOLUME 83.8 fL (75.5-95.3); MONOCYTES # (AUTO) 0.3 K/uL (2.0-10.0); MONOCYTES % (AUTO) 3.1 % (0.0-11.0); NEUTROPHILS # (AUTO) 9.3 K/uL (1.8-8.9); NEUTROPHILS % (AUTO) 84.7 % (38.5-71.5); PLATELET COUNT (AUTO) 276 K/uL (179-408); RED BLOOD CELL COUNT(AUTO) 4.26 MIL/uL (3.63-4.92); WHITE BLOOD COUNT (AUTO) 10.9 K/uL (3.8-11.8)
[2018-09-11] MEDS: THYROID 60 MG TABLET PO SCH (06:39)
[2018-09-11] MEDS ORDERED: CEPH500T PO (09:08)
[2018-09-11 11:14] VITALS: BP 127/66
[2018-09-11] MEDS: CEFTRIAXONE 1 G in IV DEXTROSE 5% 50 ML IV SCH (11:57)
[2018-09-11] MEDS ORDERED: ENOX40DI SQ (15:34)
[2018-09-11] MEDS ORDERED: ZOLP5TAB2 PO (15:34)
[2018-09-11] MEDS ORDERED: IPRA0.2S6 NEB (15:34)
[2018-09-11] MEDS ORDERED: MAGN400O6 PO (15:34)
[2018-09-11] MEDS ORDERED: HYDR-3326 PO (15:34)
[2018-09-11] MEDS ORDERED: ACET-2154 PO (15:34)
== END 2018-09-11 14:50 | DRG 535 ==
LOC: ER 11:19 → MED 15:08
PROVIDERS: ATTEND Nurse Practitioner Acute Care
DX: S72.114A Nondisplaced fracture of greater trochanter of right femur, initial encounter for closed fracture (principal); E43 Unspecified severe protein-calorie malnutrition; M97.01XA Periprosthetic fracture around internal prosthetic right hip joint, initial encounter; D68.59 Other primary thrombophilia; N39.0 Urinary tract infection, site not specified; J90 Pleural effusion, not elsewhere classified; Z68.1 Body mass index [BMI] 19.9 or less, adult; W06.XXXA Fall from bed, initial encounter; Y93.89 Activity, other specified; Y92.013 Bedroom of single-family (private) house as the place of occurrence of the external cause; G30.9 Alzheimer's disease, unspecified; F02.80 Dementia in other diseases classified elsewhere, unspecified severity, without behavioral disturbance, psychotic disturbance, mood disturbance, and anxiety; Z96.641 Presence of right artificial hip joint; M51.36 Other intervertebral disc degeneration, lumbar region; Z74.09 Other reduced mobility; B96.1 Klebsiella pneumoniae [K. pneumoniae] as the cause of diseases classified elsewhere; E03.9 Hypothyroidism, unspecified; M85.80 Other specified disorders of bone density and structure, unspecified site; M19.90 Unspecified osteoarthritis, unspecified site; Z79.01 Long term (current) use of anticoagulants
CPT/HCPCS: 36415; 70030-TC; 71045; 73502; 73551; 83735; 84100; 84443; 85025; 85730; 87070; 87077; 87086; 93005; 97110; 97116; 97530; A4663; A9150; G0378; J0696; J1650; J7030; J7040; J7060

== ENCOUNTER 2018-09-11 15:12 | Inpatient (IN) | payer MEDICARE, OTHER ==
[~2018-09-11] VITALS: Ht 154.9 cm; Wt 36.7 kg
[~2018-09-11 15:12] MED LIST changes: -ACET325T53 PO; -AZIT250T13 PO; +CEPH500T PO; -DILT-11 PO; -DOCU100C36 PO; -LACT1CAP57 PO; -LEVO500T2 PO; -MAGN400O6 PO; -MERO1VIA IV; -PANT40TA2 PO; -RIVA15TA PO; -TRAM50TA2 PO
--- NOTE | 2018-09-11 15:12 | NUR ---
Admitted from Med-Surg floor accompanied by [facility] for right hip fracture. Patient awake, alert x1. With personal career services assistant and at bed side. Patient stable with tolerable pain over both knees. Not in any form of distress, on room air. No chest pains or SOB, vital signs stable. Dr Young and Cem/ REGISTERED MEDICAL ASSISTANT informed of admission. Oriented caregiver and about unit and equipment. Routine admission care done.
[2018-09-11] MEDS ORDERED: ZOLP5TAB2 PO (15:34)
[2018-09-11] MEDS ORDERED: HYDR-3326 PO (15:34)
[2018-09-11] MEDS ORDERED: ACET-2154 PO (15:34)
[2018-09-11] MEDS ORDERED: IPRA0.2S6 NEB (15:34)
[2018-09-11] MEDS ORDERED: MAGN400O6 PO (15:34)
[2018-09-11] MEDS ORDERED: ENOX40DI SQ (15:34)
[2018-09-11 15:37] VITALS: BP 131/63
[2018-09-11] MEDS ORDERED: Z GUARD REMEDY PASTE 57 GM TUBE TOP PRN ×2 (15:45→16:30)
--- NOTE | 2018-09-11 16:25 | NUR ---
Seen and examined by Cem/MANAGEMENT DEVELOPER and requested for medication reconciliation.
[2018-09-11] MEDS ORDERED: MORPHINE SULFATE 2 MG/1 ML DISP.SYRIN IV PRN (16:30)
[2018-09-11] MEDS ORDERED: ZOLPIDEM 5 MG TABLET PO PRN (16:30)
[2018-09-11] MEDS ORDERED: ONDANSETRON 4 MG/2 ML VIAL IV PRN (16:30)
[2018-09-11] MEDS ORDERED: ACETAMINOPHEN 325 MG TABLET PO PRN (16:30)
[2018-09-11] MEDS ORDERED: TEMAZEPAM 15 MG CAPSULE PO PRN (16:30)
[2018-09-11] MEDS ORDERED: HYDROCODONE/APAP 5-325MG TABLET PO PRN (16:30)
[2018-09-11] MEDS ORDERED: MAGNESIUM HYDROXIDE 30 ML LIQUID UDC PO PRN ×2 (16:30)
[2018-09-11] MEDS ORDERED: ALBUTEROL SULFATE 2.5 MG/ 0.5 ML NEBU NEB PRN (16:45)
[2018-09-11] MEDS ORDERED: MORPHINE SULFATE 4 MG/1 ML DISP.SYRIN IV PRN (17:45)
[2018-09-11 19:45] VITALS: BP 144/69
[2018-09-11] MEDS: CEPHALEXIN MONOHYDRATE 500 MG CAPSULE PO SCH (20:20)
[2018-09-11] MEDS: ENOXAPARIN SODIUM 40 MG/0.4 ML DISP.SYRIN SQ SCH (20:25)
[2018-09-12 05:50] VITALS: BP 156/76
--- NOTE | 2018-09-12 05:56 | NUR ---
awake alert and oriented x1 confused and disoriented but easily redirected. VSS. needs attended. incontinent of bowel and bladder. kept clean and dry. no BM noted this shift. Tylenol given for hip pain, slight relief noted. fall precautions maintained. siderails up for safety. call zarco within reach. no acute distress noted.
[2018-09-12] MEDS: PANTOPRAZOLE SODIUM 40 MG TABLET.DR PO SCH (06:28)
[2018-09-12] MEDS: THYROID 60 MG TABLET PO SCH (06:30)
[2018-09-12 07:19] LABS: BASOPHILS % (AUTO) 0.2 % (0.0-2.0); EOSINOPHILS # (AUTO) 0.6 K/uL (0.0-0.7); EOSINOPHILS % (AUTO) 5.4 % (0.0-7.0); HEMATOCRIT 37.7 % (31.2-41.9); HEMOGLOBIN 12.1 g/dL (10.9-14.3); LYMPHOCYTES # (AUTO) 0.5 K/uL (20.0-40.0); LYMPHOCYTES % (AUTO) 4.9 % (20.5-51.5); MEAN CORPUSCULAR HEMOGLOBIN 26.9 uug (24.7-32.8); MEAN CORPUSCULAR HGB CONC 32 g/dL (32.3-35.6); MEAN CORPUSCULAR VOLUME 83.9 fL (75.5-95.3); MONOCYTES # (AUTO) 0.3 K/uL (2.0-10.0); MONOCYTES % (AUTO) 2.6 % (0.0-11.0); NEUTROPHILS # (AUTO) 9.2 K/uL (1.8-8.9); NEUTROPHILS % (AUTO) 86.9 % (38.5-71.5); PLATELET COUNT (AUTO) 253 K/uL (179-408); RED BLOOD CELL COUNT(AUTO) 4.49 MIL/uL (3.63-4.92); WHITE BLOOD COUNT (AUTO) 10.6 K/uL (3.8-11.8)
[2018-09-12 07:39] LABS: ALANINE AMINOTRANSFERASE 17 U/L (14-59); ALKALINE PHOSPHATASE 98 U/L (50-136); ASPARTATE AMINOTRANSFERASE 18 U/L (15-37); BILIRUBIN,TOTAL 0.2 mg/dL (0.2-1.0); CARBON DIOXIDE 29 mmol/L (21-32); CHLORIDE 106 mmol/L (98-107); CREATININE 0.5 mg/dL (0.6-1.3); GLUCOSE 88 mg/dL (74-106); MAGNESIUM 1.8 mg/dL (1.8-2.4); PHOSPHOROUS 3.1 mg/dL (2.5-4.9); POTASSIUM 3.9 mmol/L (3.5-5.1); TOTAL PROTEIN, SERUM 6.7 g/dL (6.4-8.2); UREA NITROGEN, BLOOD 13 mg/dL (7-18)
[2018-09-12] MEDS ORDERED: Medication Not On Formulary EA (Thyroid (Armour Thyroid) 30 MG) PO SCH (09:00)
[2018-09-12] MEDS: CEPHALEXIN MONOHYDRATE 500 MG CAPSULE PO SCH ×2 (09:01→20:38)
--- NOTE | 2018-09-12 09:30 | NUR ---
Received patient, awake alert x1. Not in apparent pain. Not in any form of distress. Morning care done. Mepilex applied over back area with redness.
--- NOTE | 2018-09-12 10:00 | NUR ---
Went out on pass for neurology consult, accompanied by ambulance staff and animal daycare provider. Patient stable and denies any pain.
--- NOTE | 2018-09-12 12:05 | NUR ---
Came back from check up accompanied by ambulance staff, not in any form of distress. Per Dr. Granados's notes: "Hx of from , Sleep apea, history of Alzheimer's. On exam alert, cooperative no focal deficit. She wake up with panic attacks, more frequent, recently sleeps poorly, On low dose Naltrexone HS. Impression: Sleep Apnea. recommendations: Neurology consult, gave name of Dr. Jonh Larsen MD, neurologist." network operations manager informed of recommendation. Will follow up with Dr Young plans of treatment.
[2018-09-12 13:24] VITALS: BP 147/73
[2018-09-12 17:07] VITALS: BP 109/55
--- NOTE | 2018-09-12 20:08 | NUR ---
SBAR report received. AAOx2-3 with periods of confusion. Needs attended. Fall precautions maintained. Siderails up for safety. Incontinent of bowel and bladder.Kept clean and dry. Tolerated po meds well. Will monitor patient. Kept comfortable. No acute distress noted. VSS.
[2018-09-12] MEDS: ENOXAPARIN SODIUM 40 MG/0.4 ML DISP.SYRIN SQ SCH (20:42)
[2018-09-13 05:22] VITALS: BP 139/59
[2018-09-13] MEDS: THYROID 60 MG TABLET PO SCH (06:32)
[2018-09-13] MEDS: PANTOPRAZOLE SODIUM 40 MG TABLET.DR PO SCH (06:32)
--- NOTE | 2018-09-13 08:30 | NUR ---
Patient noted resting in bed with eyes closed, personal career and technology education teacher noted at bedside, facial cues of pain noted when ambulating, Chauncey given for pain, no signs of distress noted, call light in reach, bed locked and in lowest position, all needs met
[2018-09-13 08:50] VITALS: BP 141/59
[2018-09-13] MEDS: CEPHALEXIN MONOHYDRATE 500 MG CAPSULE PO SCH ×2 (09:49→20:54)
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
--- NOTE | 2018-09-13 13:49 | NUR ---
INTERDISCIPLINARY TEAM CONFERENCE
[2018-09-13 15:54] VITALS: BP 122/46
[2018-09-13 20:41] VITALS: BP 117/58
[2018-09-13] MEDS: ENOXAPARIN SODIUM 40 MG/0.4 ML DISP.SYRIN SQ SCH (20:58)
[2018-09-14 06:58] VITALS: BP 95/64
[2018-09-14] MEDS ORDERED: ADENOSINE 6 MG/2 ML SYR IV ONE (07:09)
--- NOTE | 2018-09-14 07:13 | NUR ---
pt slept intermittently through the night and was easily awoken, pt would complain of pain any time she would be touched but refused any medication. pt in the morning had elevated hear rate, pt was asymptomatic, denies having any pain. Dr Rubin was notified, EKG was ordered, pt was in SVT, pt still asymptomatic, vitals WNL other then HR, MD was call x2 and later was given order to transfer to ED. Pt transferred to ED. Pt's was called and notified, stated that pt has history of elevated HR up to 180 on occasion. all needs met, plan of care reported to ED nurse.
[2018-09-14] MEDS ORDERED: ALBU2.5V13 IH (09:09)
[2018-09-14] MEDS ORDERED: CEPH500C2 PO (09:09)
[2018-09-14] MEDS ORDERED: ONDA4VIA52 IV (09:09)
[2018-09-14] MEDS ORDERED: [UNRECOGNIZED DRUG - OTHER] TOP (09:09)
[2018-09-14] MEDS ORDERED: PANT40TA2 PO (09:09)
[2018-09-19] MEDS ORDERED: DILT30TA33 PO (08:27)
[2018-09-19] MEDS ORDERED: METO25TA6 PO (08:27)
== END 2018-09-17 08:00 | disposition short-term general hospital (02) | DRG 560 ==
PROVIDERS: ADMIT Physical Medicine & Rehabilitation Pain Medicine; ATTEND Physical Medicine & Rehabilitation Pain Medicine
DX: S72.114D Nondisplaced fracture of greater trochanter of right femur, subsequent encounter for closed fracture with routine healing (principal); N39.0 Urinary tract infection, site not specified; R64 Cachexia; Z68.1 Body mass index [BMI] 19.9 or less, adult; R00.0 Tachycardia, unspecified; E03.9 Hypothyroidism, unspecified; F02.80 Dementia in other diseases classified elsewhere, unspecified severity, without behavioral disturbance, psychotic disturbance, mood disturbance, and anxiety; F41.9 Anxiety disorder, unspecified; G30.9 Alzheimer's disease, unspecified; M19.90 Unspecified osteoarthritis, unspecified site; M62.84 Sarcopenia; Z96.641 Presence of right artificial hip joint; R53.1 Weakness; R26.81 Unsteadiness on feet; M06.9 Rheumatoid arthritis, unspecified; Z87.440 Personal history of urinary (tract) infections
CPT/HCPCS: 36415; 83735; 84100; 85025; 92526; 92610; 93005; 97110; 97112; 97116; 97165; 97530; 97535; J0153; J1650; J2270

== ENCOUNTER 2018-09-14 07:33 | Inpatient (IN) | payer MEDICARE, OTHER ==
[~2018-09-14] VITALS: Ht 152.4 cm; Wt 43.5 kg
[~2018-09-14 07:33] MED LIST changes: +ACET-2154 PO; +ENOX40DI SQ; +HYDR-3326 PO; +IPRA0.2S6 NEB; +MAGN400O6 PO; +ZOLP5TAB2 PO
[2018-09-14] MEDS ORDERED: ADENOSINE 6 MG/2 ML SYR IV ONE (07:45)
[2018-09-14] MEDS ORDERED: IV NORMAL SALINE 1000 ML BAG IV ONE (07:45)
[2018-09-14 08:07] LABS: BASOPHILS % (AUTO) 0.4 % (0.0-2.0); EOSINOPHILS # (AUTO) 0.2 K/uL (0.0-0.7); EOSINOPHILS % (AUTO) 1.6 % (0.0-7.0); HEMATOCRIT 35.8 % (31.2-41.9); HEMOGLOBIN 11.5 g/dL (10.9-14.3); LYMPHOCYTES # (AUTO) 0.9 K/uL (20.0-40.0); LYMPHOCYTES % (AUTO) 7.8 % (20.5-51.5); MEAN CORPUSCULAR HEMOGLOBIN 26.8 uug (24.7-32.8); MEAN CORPUSCULAR HGB CONC 32 g/dL (32.3-35.6); MEAN CORPUSCULAR VOLUME 83.6 fL (75.5-95.3); MONOCYTES # (AUTO) 0.5 K/uL (2.0-10.0); MONOCYTES % (AUTO) 3.9 % (0.0-11.0); NEUTROPHILS # (AUTO) 10.3 K/uL (1.8-8.9); NEUTROPHILS % (AUTO) 86.3 % (38.5-71.5); PLATELET COUNT (AUTO) 275 K/uL (179-408); RED BLOOD CELL COUNT(AUTO) 4.28 MIL/uL (3.63-4.92); WHITE BLOOD COUNT (AUTO) 11.9 K/uL (3.8-11.8)
[2018-09-14 08:13] LABS: CARBON DIOXIDE 30 mmol/L (21-32); CHLORIDE 106 mmol/L (98-107); CREATININE 0.7 mg/dL (0.6-1.3); GLUCOSE 104 mg/dL (74-106); POTASSIUM 4.6 mmol/L (3.5-5.1); UREA NITROGEN, BLOOD 28 mg/dL (7-18)
[2018-09-14 08:25] LABS: ALANINE AMINOTRANSFERASE 30 U/L (14-59); ALKALINE PHOSPHATASE 106 U/L (50-136); ASPARTATE AMINOTRANSFERASE 25 U/L (15-37); BILIRUBIN,DIRECT 0.1 mg/dL (0.0-0.2); BILIRUBIN,TOTAL 0.2 mg/dL (0.2-1.0); TOTAL PROTEIN, SERUM 6.5 g/dL (6.4-8.2)
[2018-09-14] MEDS ORDERED: ALBU2.5V13 IH (09:09)
[2018-09-14] MEDS ORDERED: PANT40TA2 PO (09:09)
[2018-09-14] MEDS ORDERED: ONDA4VIA52 IV (09:09)
[2018-09-14] MEDS ORDERED: CEPH500C2 PO (09:09)
[2018-09-14] MEDS ORDERED: [UNRECOGNIZED DRUG - OTHER] TOP (09:09)
[2018-09-14] MEDS ORDERED: HYDROCODONE/APAP 5-325MG TABLET PO PRN (11:30)
[2018-09-14] MEDS ORDERED: MORPHINE SULFATE 2 MG/1 ML DISP.SYRIN IV PRN (11:30)
[2018-09-14] MEDS ORDERED: MAGNESIUM HYDROXIDE 30 ML LIQUID UDC PO PRN ×2 (11:30)
[2018-09-14] MEDS ORDERED: ONDANSETRON 4 MG/2 ML VIAL IV PRN (11:30)
[2018-09-14] MEDS ORDERED: ACETAMINOPHEN 325 MG TABLET PO PRN (11:30)
[2018-09-14] MEDS ORDERED: ZOLPIDEM 5 MG TABLET PO PRN ×2 (11:30)
[2018-09-14] MEDS ORDERED: Z GUARD REMEDY PASTE 57 GM TUBE TOP PRN (11:30)
[2018-09-14] MEDS ORDERED: MORPHINE SULFATE 4 MG/1 ML DISP.SYRIN IV PRN (11:45)
[2018-09-14 12:03] VITALS: BP 107/51
[2018-09-14] MEDS: METOPROLOL TARTRATE 25 MG TABLET PO SCH ×2 (13:23→20:11)
[2018-09-14 15:47] VITALS: BP 105/54
[2018-09-14] MEDS: CEPHALEXIN MONOHYDRATE 500 MG CAPSULE PO SCH (20:03)
[2018-09-14] MEDS: ENOXAPARIN SODIUM 40 MG/0.4 ML DISP.SYRIN SQ SCH (20:05)
[2018-09-14 20:24] VITALS: BP 103/45
[2018-09-14 23:48] VITALS: BP 119/55
[2018-09-15 05:04] VITALS: BP 112/54
[2018-09-15] MEDS: PANTOPRAZOLE SODIUM 40 MG TABLET.DR PO SCH (06:00)
[2018-09-15] MEDS: THYROID 60 MG TABLET PO SCH (06:00)
[2018-09-15 06:49] LABS: BASOPHILS # (AUTO) 0.1 K/uL (0.0-8.0); BASOPHILS % (AUTO) 1.1 % (0.0-2.0); EOSINOPHILS # (AUTO) 0.4 K/uL (0.0-0.7); EOSINOPHILS % (AUTO) 3.3 % (0.0-7.0); HEMATOCRIT 35.5 % (31.2-41.9); HEMOGLOBIN 11.4 g/dL (10.9-14.3); LYMPHOCYTES # (AUTO) 0.7 K/uL (20.0-40.0); LYMPHOCYTES % (AUTO) 5.6 % (20.5-51.5); MEAN CORPUSCULAR HEMOGLOBIN 26.7 uug (24.7-32.8); MEAN CORPUSCULAR HGB CONC 32 g/dL (32.3-35.6); MEAN CORPUSCULAR VOLUME 83.4 fL (75.5-95.3); MONOCYTES # (AUTO) 0.5 K/uL (2.0-10.0); MONOCYTES % (AUTO) 3.7 % (0.0-11.0); NEUTROPHILS # (AUTO) 10.4 K/uL (1.8-8.9); NEUTROPHILS % (AUTO) 86.3 % (38.5-71.5); PLATELET COUNT (AUTO) 256 K/uL (179-408); RED BLOOD CELL COUNT(AUTO) 4.26 MIL/uL (3.63-4.92); WHITE BLOOD COUNT (AUTO) 12.1 K/uL (3.8-11.8)
[2018-09-15 07:14] LABS: ALANINE AMINOTRANSFERASE 26 U/L (14-59); ALKALINE PHOSPHATASE 110 U/L (50-136); ASPARTATE AMINOTRANSFERASE 18 U/L (15-37); BILIRUBIN,TOTAL 0.3 mg/dL (0.2-1.0); CARBON DIOXIDE 28 mmol/L (21-32); CHLORIDE 105 mmol/L (98-107); CHOLESTEROL 168 mg/dL (<200); CREATININE 0.5 mg/dL (0.6-1.3); GLUCOSE 85 mg/dL (74-106); HDL CHOLESTEROL 44 mg/dL (40-60); MAGNESIUM 1.9 mg/dL (1.8-2.4); PHOSPHOROUS 2.8 mg/dL (2.5-4.9); POTASSIUM 4.2 mmol/L (3.5-5.1); TOTAL PROTEIN, SERUM 6.4 g/dL (6.4-8.2); TRIGLYCERIDES 90 MG/DL (30-150); UREA NITROGEN, BLOOD 23 mg/dL (7-18)
[2018-09-15] MEDS: CEPHALEXIN MONOHYDRATE 500 MG CAPSULE PO SCH ×2 (08:13→20:56)
[2018-09-15] MEDS: METOPROLOL TARTRATE 25 MG TABLET PO SCH ×2 (08:13→20:56)
[2018-09-15] MEDS ORDERED: Medication Not On Formulary EA (Thyroid (Armour Thyroid) 30 MG) PO SCH (09:00)
[2018-09-15] MEDS ORDERED: PANTOPRAZOLE SODIUM 40 MG TABLET.DR PO SCH (09:00)
[2018-09-15] MEDS ORDERED: ENOXAPARIN SODIUM 40 MG/0.4 ML DISP.SYRIN SQ SCH (09:00)
[2018-09-15 11:19] VITALS: BP 113/55
[2018-09-15 15:18] VITALS: BP 103/48
[2018-09-15 20:15] VITALS: BP 121/58
[2018-09-15] MEDS: ENOXAPARIN SODIUM 40 MG/0.4 ML DISP.SYRIN SQ SCH (20:58)
[2018-09-16 00:22] VITALS: BP 116/51
[2018-09-16 04:42] VITALS: BP 123/53
[2018-09-16 06:05] LABS: BASOPHILS # (AUTO) 0.1 K/uL (0.0-8.0); BASOPHILS % (AUTO) 1.3 % (0.0-2.0); EOSINOPHILS # (AUTO) 0.3 K/uL (0.0-0.7); HEMOGLOBIN 11.6 g/dL (10.9-14.3); LYMPHOCYTES # (AUTO) 0.6 K/uL (20.0-40.0); LYMPHOCYTES % (AUTO) 5.6 % (20.5-51.5); MEAN CORPUSCULAR HGB CONC 32 g/dL (32.3-35.6); MEAN CORPUSCULAR VOLUME 84.1 fL (75.5-95.3); MONOCYTES # (AUTO) 0.3 K/uL (2.0-10.0); MONOCYTES % (AUTO) 3.2 % (0.0-11.0); NEUTROPHILS # (AUTO) 9.5 K/uL (1.8-8.9); NEUTROPHILS % (AUTO) 86.9 % (38.5-71.5); PLATELET COUNT (AUTO) 254 K/uL (179-408); RED BLOOD CELL COUNT(AUTO) 4.28 MIL/uL (3.63-4.92); WHITE BLOOD COUNT (AUTO) 10.9 K/uL (3.8-11.8)
[2018-09-16] MEDS: THYROID 60 MG TABLET PO SCH (06:13)
[2018-09-16] MEDS: PANTOPRAZOLE SODIUM 40 MG TABLET.DR PO SCH (06:13)
[2018-09-16 06:16] LABS: CARBON DIOXIDE 30 mmol/L (21-32); CHLORIDE 103 mmol/L (98-107); CREATININE 0.5 mg/dL (0.6-1.3); GLUCOSE 89 mg/dL (74-106); POTASSIUM 4.2 mmol/L (3.5-5.1); UREA NITROGEN, BLOOD 19 mg/dL (7-18)
[2018-09-16 07:57] VITALS: BP 126/54
[2018-09-16] MEDS: METOPROLOL TARTRATE 25 MG TABLET PO SCH ×2 (08:06→20:56)
[2018-09-16] MEDS: CEPHALEXIN MONOHYDRATE 500 MG CAPSULE PO SCH ×2 (08:06→20:56)
[2018-09-16 11:22] VITALS: BP 126/50
[2018-09-16 14:53] VITALS: BP 133/70
[2018-09-16 20:34] VITALS: BP 125/50
[2018-09-16] MEDS: ENOXAPARIN SODIUM 40 MG/0.4 ML DISP.SYRIN SQ SCH (20:57)
[2018-09-17] VITALS (18 sets, daily range): BP systolic 90–130; BP diastolic 43–65
[2018-09-17] MEDS: THYROID 60 MG TABLET PO SCH (06:11)
[2018-09-17] MEDS: PANTOPRAZOLE SODIUM 40 MG TABLET.DR PO SCH (06:11)
[2018-09-17 06:17] LABS: CARBON DIOXIDE 30 mmol/L (21-32); CHLORIDE 103 mmol/L (98-107); CREATININE 0.5 mg/dL (0.6-1.3); GLUCOSE 92 mg/dL (74-106); POTASSIUM 3.9 mmol/L (3.5-5.1); UREA NITROGEN, BLOOD 18 mg/dL (7-18)
[2018-09-17 06:51] LABS: BASOPHILS % (AUTO) 0.4 % (0.0-2.0); EOSINOPHILS # (AUTO) 0.3 K/uL (0.0-0.7); EOSINOPHILS % (AUTO) 2.3 % (0.0-7.0); HEMATOCRIT 35.9 % (31.2-41.9); HEMOGLOBIN 11.3 g/dL (10.9-14.3); LYMPHOCYTES # (AUTO) 0.6 K/uL (20.0-40.0); LYMPHOCYTES % (AUTO) 4.8 % (20.5-51.5); MEAN CORPUSCULAR HEMOGLOBIN 26.5 uug (24.7-32.8); MEAN CORPUSCULAR HGB CONC 32 g/dL (32.3-35.6); MEAN CORPUSCULAR VOLUME 83.9 fL (75.5-95.3); MONOCYTES # (AUTO) 0.3 K/uL (2.0-10.0); MONOCYTES % (AUTO) 2.7 % (0.0-11.0); NEUTROPHILS # (AUTO) 11.6 K/uL (1.8-8.9); NEUTROPHILS % (AUTO) 89.8 % (38.5-71.5); PLATELET COUNT (AUTO) 278 K/uL (179-408); RED BLOOD CELL COUNT(AUTO) 4.28 MIL/uL (3.63-4.92); WHITE BLOOD COUNT (AUTO) 12.9 K/uL (3.8-11.8)
[2018-09-17] MEDS: METOPROLOL TARTRATE 25 MG TABLET PO SCH ×2 (08:58→20:59)
[2018-09-17] MEDS ORDERED: ADENOSINE 6 MG/2 ML SYR IV ONE ×4 (14:15→23:52)
[2018-09-17] MEDS: ENOXAPARIN SODIUM 40 MG/0.4 ML DISP.SYRIN SQ SCH (20:59)
[2018-09-17] MEDS: DILTIAZEM HCL 30 MG TABLET PO SCH (21:00)
[2018-09-17] MEDS: ADENOSINE 6 MG/2 ML SYR IV ONE ×2 (22:22→22:43)
[2018-09-18 00:21] VITALS: BP 95/63
[2018-09-18 04:00] VITALS: BP 96/44
[2018-09-18] MEDS: DILTIAZEM HCL 30 MG TABLET PO SCH ×4 (06:00→17:27)
[2018-09-18] MEDS: THYROID 60 MG TABLET PO SCH (06:38)
[2018-09-18] MEDS: PANTOPRAZOLE SODIUM 40 MG TABLET.DR PO SCH (06:38)
[2018-09-18 07:18] LABS: BASOPHILS # (AUTO) 0.2 K/uL (0.0-8.0); BASOPHILS % (AUTO) 1.3 % (0.0-2.0); EOSINOPHILS # (AUTO) 0.4 K/uL (0.0-0.7); EOSINOPHILS % (AUTO) 2.9 % (0.0-7.0); HEMATOCRIT 34.6 % (31.2-41.9); HEMOGLOBIN 10.9 g/dL (10.9-14.3); LYMPHOCYTES # (AUTO) 0.6 K/uL (20.0-40.0); MEAN CORPUSCULAR HEMOGLOBIN 26.5 uug (24.7-32.8); MEAN CORPUSCULAR HGB CONC 31 g/dL (32.3-35.6); MEAN CORPUSCULAR VOLUME 84.5 fL (75.5-95.3); MONOCYTES # (AUTO) 0.5 K/uL (2.0-10.0); MONOCYTES % (AUTO) 4.2 % (0.0-11.0); NEUTROPHILS # (AUTO) 10.6 K/uL (1.8-8.9); NEUTROPHILS % (AUTO) 86.6 % (38.5-71.5); PLATELET COUNT (AUTO) 275 K/uL (179-408); RED BLOOD CELL COUNT(AUTO) 4.09 MIL/uL (3.63-4.92); WHITE BLOOD COUNT (AUTO) 12.3 K/uL (3.8-11.8)
[2018-09-18 07:40] VITALS: BP 107/49
[2018-09-18 07:47] LABS: CARBON DIOXIDE 30 mmol/L (21-32); CHLORIDE 104 mmol/L (98-107); CREATININE 0.6 mg/dL (0.6-1.3); GLUCOSE 91 mg/dL (74-106); POTASSIUM 4.5 mmol/L (3.5-5.1); UREA NITROGEN, BLOOD 28 mg/dL (7-18)
[2018-09-18] MEDS: METOPROLOL TARTRATE 25 MG TABLET PO SCH ×2 (08:14→20:45)
[2018-09-18 11:21] VITALS: BP 110/47
[2018-09-18 15:24] VITALS: BP 101/48
[2018-09-18 20:03] VITALS: BP 121/70
[2018-09-18] MEDS: ENOXAPARIN SODIUM 40 MG/0.4 ML DISP.SYRIN SQ SCH (20:46)
[2018-09-19] MEDS: DILTIAZEM HCL 30 MG TABLET PO SCH ×3 (00:12→11:59)
[2018-09-19 00:48] VITALS: BP 115/65
[2018-09-19 04:05] VITALS: BP 119/65
[2018-09-19] MEDS: PANTOPRAZOLE SODIUM 40 MG TABLET.DR PO SCH (05:48)
[2018-09-19] MEDS: THYROID 60 MG TABLET PO SCH (05:51)
[2018-09-19 06:54] LABS: BASOPHILS # (AUTO) 0.1 K/uL (0.0-8.0); BASOPHILS % (AUTO) 0.7 % (0.0-2.0); EOSINOPHILS # (AUTO) 0.4 K/uL (0.0-0.7); EOSINOPHILS % (AUTO) 3.3 % (0.0-7.0); HEMATOCRIT 33.7 % (31.2-41.9); HEMOGLOBIN 10.5 g/dL (10.9-14.3); LYMPHOCYTES # (AUTO) 0.7 K/uL (20.0-40.0); MEAN CORPUSCULAR HEMOGLOBIN 26.5 uug (24.7-32.8); MEAN CORPUSCULAR HGB CONC 31 g/dL (32.3-35.6); MEAN CORPUSCULAR VOLUME 84.8 fL (75.5-95.3); MONOCYTES # (AUTO) 0.5 K/uL (2.0-10.0); MONOCYTES % (AUTO) 4.3 % (0.0-11.0); NEUTROPHILS % (AUTO) 85.7 % (38.5-71.5); PLATELET COUNT (AUTO) 268 K/uL (179-408); RED BLOOD CELL COUNT(AUTO) 3.98 MIL/uL (3.63-4.92); WHITE BLOOD COUNT (AUTO) 11.7 K/uL (3.8-11.8)
[2018-09-19 07:05] LABS: CARBON DIOXIDE 32 mmol/L (21-32); CHLORIDE 105 mmol/L (98-107); CREATININE 0.6 mg/dL (0.6-1.3); GLUCOSE 92 mg/dL (74-106); POTASSIUM 4.3 mmol/L (3.5-5.1); UREA NITROGEN, BLOOD 28 mg/dL (7-18)
[2018-09-19] MEDS ORDERED: METO25TA6 PO (08:27)
[2018-09-19] MEDS ORDERED: DILT30TA33 PO (08:27)
[2018-09-19] MEDS: METOPROLOL TARTRATE 25 MG TABLET PO SCH (08:43)
[2018-09-19 11:27] VITALS: BP 102/48
[2018-09-19 11:59] VITALS: BP 103/40
== END 2018-09-19 15:45 | DRG 280 ==
LOC: ER 07:33 → TELE 11:01 → TELE-TD 09-17 14:00
PROVIDERS: ADMIT Nurse Practitioner Acute Care; ATTEND Family Medicine
DX: I47.1 Supraventricular tachycardia (principal); E43 Unspecified severe protein-calorie malnutrition; I21.A1 Myocardial infarction type 2; N17.0 Acute kidney failure with tubular necrosis; D68.59 Other primary thrombophilia; R64 Cachexia; Z68.1 Body mass index [BMI] 19.9 or less, adult; N39.0 Urinary tract infection, site not specified; I50.32 Chronic diastolic (congestive) heart failure; E03.9 Hypothyroidism, unspecified; I48.91 Unspecified atrial fibrillation; E86.0 Dehydration; D72.829 Elevated white blood cell count, unspecified; E83.51 Hypocalcemia; F41.9 Anxiety disorder, unspecified; M19.90 Unspecified osteoarthritis, unspecified site; M62.84 Sarcopenia; Z87.440 Personal history of urinary (tract) infections; G30.9 Alzheimer's disease, unspecified; F02.80 Dementia in other diseases classified elsewhere, unspecified severity, without behavioral disturbance, psychotic disturbance, mood disturbance, and anxiety; Z96.641 Presence of right artificial hip joint; Z88.0 Allergy status to penicillin; E88.09 Other disorders of plasma-protein metabolism, not elsewhere classified; S72.001S Fracture of unspecified part of neck of right femur, sequela
CPT/HCPCS: 36415; 70030-TC; 71045; 83735; 84100; 84443; 84481; 85025; 85730; 87086; 93005; 93307; 97110; 97112; 97116; 97165; 97530; A4663; G0378; J0153; J1650; J2270; J2405; J7050